=== PATIENT | female | born 1990 | race Caucasian/White ===

== ENCOUNTER → 2016-10-18 | Outpatient (REF) | payer OTHER ==
[~2016-10-18] MED LIST: IBUP60TA PO; MOTRIN PO; PERC5TAB6 PO; PERCOCET PO; STUART NATAL PO; TYLENOL PO
[2016-10-18 17:58] LABS: MEAN CORPUSCULAR HEMOGLOBIN 26.7 pg (27.0-33.0); MEAN CORPUSCULAR HGB CONC 33.1 g/dl (32.0-36.5); MEAN CORPUSCULAR VOLUME 80.7 fl (80.0-96.0); RED CELL DISTRIBUTION WIDTH 14.4 % (11.5-14.5)
[2016-10-18 18:01] LABS: ALBUMIN 4.4 GM/DL (3.2-5.2); ALBUMIN/GLOBULIN RATIO 1.29 (1.00-1.93); ALKALINE PHOSPHATASE 45 U/L (45-117); ALT/SGPT 33 U/L (12-78); ANION GAP 5 MEQ/L (8-16); AST/SGOT 19 U/L (15-37); BILIRUBIN,TOTAL 0.5 MG/DL (0.2-1.0); BLOOD UREA NITROGEN 13 MG/DL (7-18); CALCIUM LEVEL 9.5 MG/DL (8.5-10.1); CARBON DIOXIDE LEVEL 30 MEQ/L (21-32); CHLORIDE LEVEL 105 MEQ/L (98-107); CREATININE FOR GFR 0.88 MG/DL (0.55-1.02); GLOMERULAR FILTRATION RATE > 60.0 (>60); GLUCOSE, FASTING 94 MG/DL (70-105); POTASSIUM SERUM 4.7 MEQ/L (3.5-5.1); SODIUM LEVEL 140 MEQ/L (136-145); TOTAL PROTEIN 7.8 GM/DL (6.4-8.2)
== END ==
LOC: M SFHCLERA 11:06
PROVIDERS: ATTEND Physician Assistant
DX: F41.8 Other specified anxiety disorders (principal)

== ENCOUNTER → 2016-11-10 | Outpatient (CLI) | payer OTHER ==
[2016-11-10 19:24] LABS: BASO # 0.1 K/mm3 (0.0-0.2); BASO % 0.9 % (0.0-1.0); EOS # 0.1 K/mm3 (0.0-0.50); EOS % 1.8 % (0.0-3.0); LARGE UNSTAINED CELL # 0.2 K/mm3 (0.0-0.4); LARGE UNSTAINED CELL % 2.2 % (0.0-4.0); LYMPH # 2.1 K/mm3 (1.5-6.5); LYMPH % 28.7 % (24.0-44.0); MEAN CORPUSCULAR HEMOGLOBIN 27.5 pg (27.0-33.0); MEAN CORPUSCULAR HGB CONC 33.5 g/dl (32.0-36.5); MEAN CORPUSCULAR VOLUME 81.9 fl (80.0-96.0); MONO # 0.3 K/mm3 (0.0-0.8); MONO % 4.9 % (0.0-5.0); NEUTROPHILS # 4.3 K/mm3 (1.8-7.7); NEUTROPHILS % 61.5 % (36.0-66.0); PLATELET COUNT, AUTOMATED 242 k/mm3 (150-450); RED CELL DISTRIBUTION WIDTH 14.5 % (11.5-14.5); WHITE BLOOD COUNT 6.9 K/mm3 (4.0-10.0)
[2016-11-10 19:44] LABS: FREE T4 0.88 NG/DL (0.76-1.46)
[2016-11-11 10:31] LABS: HBsAg Prenatal NEGATIVE (NEGATIVE)
== END ==
LOC: M SMT 13:17
PROVIDERS: ATTEND Specialist
DX: Z36 Encounter for antenatal screening of mother (principal); Z3A.00 Weeks of gestation of pregnancy not specified

== ENCOUNTER → 2017-02-14 | Outpatient (CLI) | payer OTHER ==
[~2017-02-14] MED LIST changes: +PERC5TAB12 PO; -PERC5TAB6 PO
[2017-02-14 20:29] LABS: FREE T4 0.99 NG/DL (0.76-1.46)
== END ==
LOC: M SMT 10:54
PROVIDERS: ATTEND Specialist
DX: E03.9 Hypothyroidism, unspecified (principal)

== ENCOUNTER → 2017-03-06 | Outpatient (CLI) | payer OTHER ==
--- NOTE | 2017-03-06 22:24 | REP ---
Clinical: Anatomical evaluation. Comparison: None . Findings: Examination demonstrates a single live intrauterine in breech presentation. motion is identified by technologist. Placenta is noted posteriorly and grade zero without evidence for placenta previa or abruption. Amniotic fluid volume is normal. Cervix measures 4.7 cm in length and appears closed. No evidence for nuchal cord. Gestational age by current measurements 20 weeks 6 days with TONYA 07/18/2017 . FHR equals 141 beats per minute. BPD 4.9 cm 20 weeks 5 days HC 18.6 cm 21 weeks 1 day AC 15.9 cm 21 weeks 0 days FL 3.7 cm 21 weeks 6 days HL 3.7 cm 22 weeks 6 days HC/AC ratio 1.17 Estimated weight 416 grams ( 60th percentile). Anatomical assessment demonstrates normal structures including cranium, choroid plexus, cavum, cerebellum/posterior fossa, facial features, lungs, four-chamber heart/ventricular outflow tracts, diaphragm, stomach, cord insertion/three-vessel cord, kidneys/bladder, spine, and extremities. Impression: Single live intrauterine in breech presentation. Anatomical assessment is complete and normal. No gross abnormalities are identified. Signed by Db Mendoza MD 03/06/2017 10:16 P
== END ==
LOC: M SMT 09:21
PROVIDERS: ATTEND Specialist
DX: Z36 Encounter for antenatal screening of mother (principal); Z3A.20 20 weeks gestation of pregnancy

== ENCOUNTER → 2017-04-14 | Outpatient (CLI) | payer OTHER ==
[2017-04-14 13:45] LABS: BASO % 0.3 % (0.0-1.0); EOS # 0.1 10^3/uL (0.0-0.50); IMMATURE GRANULOCYTE % 0.9 % (0-0); LYMPH # 1.7 10^3/uL (1.5-6.5); LYMPH % 19.4 % (24.0-44.0); MEAN CORPUSCULAR HEMOGLOBIN 25.8 pg (27.0-33.0); MEAN CORPUSCULAR HGB CONC 31.9 g/dl (32.0-36.5); MONO # 0.6 10^3/uL (0.0-0.8); MONO % 6.3 % (0.0-5.0); NEUTROPHILS # 6.4 10^3/uL (1.8-7.7); NEUTROPHILS % 72.1 % (36.0-66.0); PLATELET COUNT, AUTOMATED 213 10^3/uL (150-450); RED CELL DISTRIBUTION WIDTH 13.9 % (11.5-14.5); WHITE BLOOD COUNT 8.9 10^3/uL (4.0-10.0)
== END ==
LOC: M SMT 09:26
PROVIDERS: ATTEND Specialist
DX: Z36.89 Encounter for other specified antenatal screening (principal); Z3A.00 Weeks of gestation of pregnancy not specified

== ENCOUNTER → 2017-06-19 | Outpatient (CLI) | payer MEDICAID ==
[2017-06-19 13:18] LABS: MEAN CORPUSCULAR HGB CONC 31.4 g/dl (32.0-36.5); MEAN CORPUSCULAR VOLUME 79.5 fl (80.0-96.0); PLATELET COUNT, AUTOMATED 216 10^3/uL (150-450); RED CELL DISTRIBUTION WIDTH 19.4 % (11.5-14.5); WHITE BLOOD COUNT 10.2 10^3/uL (4.0-10.0)
== END ==
LOC: M SMT 11:04
PROVIDERS: ATTEND Specialist
DX: D64.9 Anemia, unspecified (principal)

== ENCOUNTER → 2017-06-19 | Outpatient (REF) | payer MEDICAID | LOC: M LAB REF 12:58 | PROVIDERS: ATTEND Specialist | DX: Z34.83 Encounter for supervision of other normal pregnancy, third trimester (principal) ==

== ENCOUNTER → 2017-06-29 | Outpatient (CLI) | payer MEDICAID ==
--- NOTE | 2017-06-29 11:00 | REP ---
OB ULTRASOUND: Real-time sonographic evaluation of the gravid uterus is performed. There is a single living intrauterine gestation with an estimated gestational age or 37 weeks 2 days, EDC 07/18/2017. Today's measurements indicate appropriate growth. BPD 89 mm = 36 weeks 1 day, 32nd percentile HC 337 mm = 38 weeks 4 days, 70th percentile AC 341 mm = 38 weeks 0 days, 60th percentile Femur length 73 mm = 37 weeks 1 day, 47th percentile HC/AC ratio 0.99 within normal range. Estimated weight 3269 grams, 60th percentile. heart rate 139 beats per minute. Amniotic fluid within normal limits, MARIAN 18.5 within normal range of 7.4-24.2. Biophysical profile score 8 out of 8. S/D ratio 2.42 within normal range. RI 0.59 within normal range. SEEN/GROSSLY UNREMARKABLE Lateral ventricles Yes Posterior fossa Yes Upper lip Yes Four-chamber heart Yes LVOT Yes RVOT No Stomach Yes Cord insertion No Three vessel cord Yes Kidneys Yes Bladder Yes Spine No position: Vertex. Placenta: Anterior and grade 1 with no previa or abruption. Signed by Emeterio Mitchell MD 06/29/2017 08:36 P
== END ==
LOC: M SMT 09:17
PROVIDERS: ATTEND Advanced Practice Midwife
DX: O09.293 Supervision of pregnancy with other poor reproductive or obstetric history, third trimester (principal); Z3A.37 37 weeks gestation of pregnancy

== ENCOUNTER 2017-07-21 04:57 | Inpatient (IN) | payer OTHER, MEDICAID ==
[2017-07-21 05:36] LABS: HEMATOCRIT 35.8 % (36.0-47.0); HEMOGLOBIN 11.6 g/dl (12.0-16.0); MEAN CORPUSCULAR HEMOGLOBIN 25.8 pg (27.0-33.0); MEAN CORPUSCULAR HGB CONC 32.4 g/dl (32.0-36.5); MEAN CORPUSCULAR VOLUME 79.6 fl (80.0-96.0); PLATELET COUNT, AUTOMATED 190 10^3/uL (150-450); RED CELL DISTRIBUTION WIDTH 19.6 % (11.5-14.5); WHITE BLOOD COUNT 8.3 10^3/uL (4.0-10.0)
[2017-07-21] MEDS: PENICILLIN G POTASSIUM IV 5 MU in D5W MINI-BAG PLUS 100 ML IV (05:56)
[2017-07-21 06:04] LABS: AMPHETAMINES URINE REFLEX NEGATIVE (NEGATIVE); BARBITURATES URINE REFLEX NEGATIVE (NEGATIVE); BENZODIAZEPINES URINE REFLEX NEGATIVE (NEGATIVE); CANNABINOIDS URINE REFLEX NEGATIVE (NEGATIVE); COCAINE METABOLITE URINE REFLE NEGATIVE (NEGATIVE); METHADONE URINE REFLEX NEGATIVE (NEGATIVE); OPIATES URINE REFLEX NEGATIVE (NEGATIVE); PHENCYCLIDINE URINE REFLEX NEGATIVE (NEGATIVE)
[2017-07-21] MEDS ORDERED: OXYTOCIN 30 UNITS IN 0.9% NaCl 500ML IV BAG (J2590) As Ordered (07:49)
[2017-07-21] MEDS: OXYTOCIN DRIP 30 UNITS in APPROPRIATE DILUENT 1 EA IV (07:56)
[2017-07-21] MEDS: PENICILLIN G POTASSIUM IV 2.5 MU in APPROPRIATE DILUENT 1 EA IV ×4 (10:44→23:14)
[2017-07-21] MEDS: LR 1,000 ML IV ×2 (13:49→15:44)
[2017-07-21] MEDS ORDERED: FENTANYL/ROPIVACAINE/NACL BAG 200 ML EPIDURAL (22:30)
[2017-07-21] MEDS ORDERED: NALOXONE INJ 0.4 MG/1 ML VIAL (J2310) IV (22:30)
[2017-07-21] MEDS ORDERED: REFRIGERATOR IV KEYS XX (22:30)
[2017-07-21] MEDS ORDERED: EPIDURAL/PCA KEYS XX (22:30)
[2017-07-21] MEDS ORDERED: EPIDURAL COMMENT XX (22:30)
[2017-07-21] MEDS ORDERED: diphenhydrAMINE INJ 50MG/ML VIAL (J1200) IV (22:30)
[2017-07-21] MEDS ORDERED: ONDANSETRON 4MG/2ML VIAL (J2405) IV (22:30)
[2017-07-22] MEDS: LACTATED RINGER'S 1000 ML IV (01:32)
[2017-07-22] MEDS: ePHEDrine SULFATE 25 MG/5 ML(5MG/ML) SYRINGE IV (01:32)
[2017-07-22] MEDS: OXYTOCIN DRIP 30 UNITS in APPROPRIATE DILUENT 1 EA IV (05:00)
[2017-07-22] MEDS ORDERED: ONDANSETRON 4MG/2ML VIAL (J2405) IV (05:00)
[2017-07-22] MEDS ORDERED: METHYLERGONOVINE MALEATE 0.2 MG TAB PO (05:00)
[2017-07-22] MEDS ORDERED: RHOGAM 300 MCG (1500 IU) INJ (J2790) IM (05:00)
[2017-07-22] MEDS ORDERED: MEASLES,MUMPS,RUBELLA VACCINE INJ (MMR-II) (90707) SC (05:00)
[2017-07-22] MEDS: LIDOCAINE 1% MDV INJ 50 ML VIAL INFIL (05:00)
[2017-07-22] MEDS: PRENATAL VITAMINS CHEWABLE TABLET PO (08:27)
[2017-07-22] MEDS: IBUPROFEN 800 MG TAB PO ×2 (08:28→17:28)
[2017-07-22] MEDS: DOCUSATE SODIUM 100 MG CAP PO (12:39)
[2017-07-22] MEDS: DIBUCAINE 1% OINTMENT 30GM TOP (12:40)
[2017-07-22] MEDS: ACETAMINOPHEN 500 MG TAB PO (12:40)
[2017-07-23] MEDS: PRENATAL VITAMINS CHEWABLE TABLET PO (08:32)
== END 2017-07-23 14:35 | disposition home or self-care (01) | DRG 560 ==
LOC: M LDI 04:57 → M OBS 07-22 13:37
PROVIDERS: Specialist
PROC: 3E033VJ Introduction of Other Hormone into Peripheral Vein, Percutaneous Approach (ICD-10-PCS; 2017-07-21)
PROC: 10D07Z6 Extraction of Products of Conception, Vacuum, Via Natural or Artificial Opening (ICD-10-PCS; principal; 2017-07-22)
PROC: 0KQM0ZZ Repair Perineum Muscle, Open Approach (ICD-10-PCS; 2017-07-22)
DX: O48.0 Post-term pregnancy (principal); O34.211 Maternal care for low transverse scar from previous cesarean delivery; Z3A.40 40 weeks gestation of pregnancy; O99.824 Streptococcus B carrier state complicating childbirth; O99.284 Endocrine, nutritional and metabolic diseases complicating childbirth; E03.9 Hypothyroidism, unspecified; O76 Abnormality in fetal heart rate and rhythm complicating labor and delivery; O70.1 Second degree perineal laceration during delivery; O69.81X0 Labor and delivery complicated by cord around neck, without compression, not applicable or unspecified; Z37.0 Single live birth

== ENCOUNTER → 2018-02-15 | Outpatient (REF) | payer OTHER ==
[2018-02-15 16:41] LABS: HEMATOCRIT 36.4 % (36.0-47.0); HEMOGLOBIN 11.7 g/dl (12.0-15.5); MEAN CORPUSCULAR HGB CONC 32.1 g/dl (32.0-36.5); MEAN CORPUSCULAR VOLUME 84.1 fl (80.0-96.0); PLATELET COUNT, AUTOMATED 248 10^3/uL (150-450); RED BLOOD COUNT 4.33 10^6/uL (4.00-5.40); WHITE BLOOD COUNT 6.7 10^3/uL (4.0-10.0)
[2018-02-15 16:42] LABS: THYROID STIMULATING HORMONE 0.668 uIU/ML (0.358-3.740)
== END ==
LOC: M SFHCPLAZ 13:54
DX: R53.83 Other fatigue (principal)
CPT/HCPCS: 84443

== ENCOUNTER 2018-02-21 07:57 | Emergency (ER) | payer OTHER ==
[2018-02-21] MEDS: diphenhydrAMINE INJ 50MG/ML VIAL (J1200) IV (09:12)
[2018-02-21] MEDS: METOCLOPRAMIDE INJ 10MG/2ML VIAL (J2765) IV (09:12)
[2018-02-21 09:24] LABS: HEMATOCRIT 36.9 % (36.0-47.0); MEAN CORPUSCULAR HGB CONC 32.5 g/dl (32.0-36.5); MEAN CORPUSCULAR VOLUME 83.1 fl (80.0-96.0); PLATELET COUNT, AUTOMATED 255 10^3/uL (150-450); RED BLOOD COUNT 4.44 10^6/uL (4.00-5.40); RED CELL DISTRIBUTION WIDTH 12.9 % (11.5-14.5); WHITE BLOOD COUNT 6.5 10^3/uL (4.0-10.0)
[2018-02-21 09:30] LABS: ADD MANUAL DIFFER YES; DIFF SLIDE NUMBER 154; POSITIVE MORPH POS FLAG
[2018-02-21 09:47] LABS: ALBUMIN 3.6 GM/DL (3.2-5.2); ALBUMIN/GLOBULIN RATIO 0.88 (1.00-1.93); ALKALINE PHOSPHATASE 43 U/L (45-117); ALT/SGPT 26 U/L (12-78); ANION GAP 8 MEQ/L (8-16); AST/SGOT 24 U/L (7-37); BILIRUBIN,TOTAL 0.4 MG/DL (0.2-1.0); BLOOD UREA NITROGEN 16 MG/DL (7-18); CALCIUM LEVEL 9.1 MG/DL (8.5-10.1); CARBON DIOXIDE LEVEL 26 MEQ/L (21-32); CHLORIDE LEVEL 107 MEQ/L (98-107); CREATININE FOR GFR 0.86 MG/DL (0.55-1.30); GLOMERULAR FILTRATION RATE > 60.0 (>60); GLUCOSE, FASTING 99 MG/DL (70-100); POTASSIUM SERUM 4.6 MEQ/L (3.5-5.1); SODIUM LEVEL 141 MEQ/L (136-145); TOTAL PROTEIN 7.7 GM/DL (6.4-8.2)
[2018-02-21 09:53] LABS: ATYPICAL LYMPH 7 % (0-5); BANDS 1 % (< 11); BASOPHILS 2 % (0-4); EOSINOPHILS 9 % (0-5); LYMPHOCYTES 35 % (16-52); MONOCYTES 7 % (0-8); NEUTROPHILS 39 % (35-75); PLATELET ESTIMATE NORMAL (NORMAL)
[2018-02-21] MEDS: NS 1,000 ML IV (10:50)
== END 2018-02-21 14:50 | disposition home or self-care (01) ==
LOC: M ED 07:57
DX: R20.9 Unspecified disturbances of skin sensation (principal); R51 Headache; R00.1 Bradycardia, unspecified; Z79.899 Other long term (current) drug therapy
CPT/HCPCS: J1200

== ENCOUNTER → 2018-04-20 | Outpatient (REF) | payer OTHER ==
[2018-04-20 13:47] LABS: BASO # 0.1 10^3/uL (0.0-0.2); BASO % 1.3 % (0.0-1.0); EOS # 0.2 10^3/uL (0.0-0.50); EOS % 3.3 % (0.0-3.0); HEMATOCRIT 39.1 % (36.0-47.0); HEMOGLOBIN 12.6 g/dl (12.0-15.5); IMMATURE GRANULOCYTE % 0.1 % (0-3.0); LYMPH # 2.5 10^3/uL (1.5-6.5); LYMPH % 36.7 % (24.0-44.0); MEAN CORPUSCULAR HEMOGLOBIN 26.4 pg (27.0-33.0); MEAN CORPUSCULAR HGB CONC 32.2 g/dl (32.0-36.5); MONO # 0.4 10^3/uL (0.0-0.8); MONO % 5.4 % (0.0-5.0); NEUTROPHILS # 3.7 10^3/uL (1.8-7.7); NEUTROPHILS % 53.2 % (36.0-66.0); PLATELET COUNT, AUTOMATED 257 10^3/uL (150-450); RED BLOOD COUNT 4.77 10^6/uL (4.00-5.40); RED CELL DISTRIBUTION WIDTH 13.5 % (11.5-14.5); WHITE BLOOD COUNT 6.9 10^3/uL (4.0-10.0)
[2018-04-20 14:06] LABS: ALBUMIN 3.9 GM/DL (3.2-5.2); ALBUMIN/GLOBULIN RATIO 1.03 (1.00-1.93); ALKALINE PHOSPHATASE 40 U/L (45-117); ALT/SGPT 23 U/L (12-78); ANION GAP 9 MEQ/L (8-16); AST/SGOT 21 U/L (7-37); BILIRUBIN,TOTAL 0.4 MG/DL (0.2-1.0); BLOOD UREA NITROGEN 15 MG/DL (7-18); CALCIUM LEVEL 9.2 MG/DL (8.5-10.1); CARBON DIOXIDE LEVEL 26 MEQ/L (21-32); CHLORIDE LEVEL 106 MEQ/L (98-107); FOLATE > 24.0 NG/ML; GLOMERULAR FILTRATION RATE > 60.0 (>60); GLUCOSE, FASTING 91 MG/DL (70-100); POTASSIUM SERUM 4.9 MEQ/L (3.5-5.1); RHEUMATOID FACTOR QUANT < 10.0 IU/ML (<15.0); SODIUM LEVEL 141 MEQ/L (136-145); THYROID STIMULATING HORMONE 0.369 uIU/ML (0.358-3.740); TOTAL PROTEIN 7.7 GM/DL (6.4-8.2)
[2018-04-20 14:34] LABS: ERYTHROCYTE SEDIMENTATION RATE 12 mm/hr (0-20)
[2018-04-24 12:41] LABS: ALBUMIN 4.24 GM/DL (3.29-5.55); ALPHA-1-GLOBULIN % 4.2 % (2.9-4.9); ALPHA-1-GLOBULINS 0.32 GM/DL (0.17-0.41); ALPHA-2-GLOBULINS 0.79 GM/DL (0.42-0.99); ALPHA-2-GLOBULINS % 10.3 % (7.1-11.8); BETA-1-GLOBULINS 0.57 GM/DL (0.28-0.60); BETA-1-GLOBULINS % 7.4 % (4.7-7.2); BETA-2-GLOBULINS 0.38 GM/DL (0.19-0.55); BETA-2-GLOBULINS % 4.9 % (3.2-6.5); GAMMA GLOBULIN % 18.2 % (11.1-18.8)
[2018-04-25 08:06] LABS: ANTI DOUBLE STRAND-DNA AB 1 IU/mL (0-9); ANTINUCLEAR ANTIBODIES DIRECT Positive (Negative); RNP ANTIBODIES <0.2 AI (0.0-0.9); SJOGREN'S ANTI SS-A 0.4 AI (0.0-0.9); SJOGREN'S ANTI SS-B <0.2 AI (0.0-0.9); SMITH ANTIBODIES <0.2 AI (0.0-0.9); VITAMIN B1 LEVEL WHOLE BLOOD 107.2 nmol/L (66.5-200.0); VITAMIN B6,PYRIDOXAL PHOSPHATE 13.3 ug/L (2.0-32.8); VITAMIN E(ALPHA TOCOPHEROL) 11.2 mg/L (5.9-19.4); VITAMIN E(GAMMA TOCOPHEROL) 0.7 mg/L (0.7-4.9)
== END ==
LOC: M LABNEURO 09:18
DX: R42 Dizziness and giddiness (principal); R20.2 Paresthesia of skin
CPT/HCPCS: 82746

== ENCOUNTER → 2018-06-25 | Outpatient (REF) | payer OTHER ==
[~2018-06-25] MED LIST changes: +IBUP-1114 PO; +IRON65TA PO; +LEVO50TA5 PO; +MAPA500T17 PO; +SPRI28TA
[2018-06-27 14:14] LABS: ANTI DOUBLE STRAND-DNA AB <1 IU/mL (0-9); ANTINUCLEAR ANTIBODIES DIRECT Positive (Negative); RNP ANTIBODIES <0.2 AI (0.0-0.9); SJOGREN'S ANTI SS-A 0.3 AI (0.0-0.9); SJOGREN'S ANTI SS-B <0.2 AI (0.0-0.9); SMITH ANTIBODIES <0.2 AI (0.0-0.9)
== END ==
LOC: M LABNEURO 13:27
PROVIDERS: ATTEND Psychiatry & Neurology Neurology
DX: Z00.00 Encounter for general adult medical examination without abnormal findings (principal)

== ENCOUNTER 2018-07-16 08:40 | Emergency (ER) | payer OTHER ==
[~2018-07-16] VITALS: Ht 152.4 cm; Wt 59.5 kg
[~2018-07-16 08:40] MED LIST changes: -MAPA500T17 PO; +MAPA500T2 PO
[2018-07-16] MEDS ORDERED: NS 500 ML IV ONE (09:30)
[2018-07-16 10:00] LABS: BASO # 0.1 10^3/uL (0.0-0.2); BASO % 0.8 % (0.0-1.0); EOS # 0.2 10^3/uL (0.0-0.50); EOS % 2.1 % (0.0-3.0); HEMATOCRIT 38.2 % (36.0-47.0); HEMOGLOBIN 12.8 g/dl (12.0-15.5); LYMPH % 24.9 % (24.0-44.0); MEAN CORPUSCULAR HEMOGLOBIN 26.6 pg (27.0-33.0); MEAN CORPUSCULAR HGB CONC 33.5 g/dl (32.0-36.5); MEAN CORPUSCULAR VOLUME 79.4 fl (80.0-96.0); MONO # 0.4 10^3/uL (0.0-0.8); NEUTROPHILS # 5.4 10^3/uL (1.8-7.7); NEUTROPHILS % 66.9 % (36.0-66.0); PLATELET COUNT, AUTOMATED 307 10^3/uL (150-450); RED BLOOD COUNT 4.81 10^6/uL (4.00-5.40)
[2018-07-16 10:34] LABS: HCG, SERUM QUALITATIVE POSITIVE (NEGATIVE)
[2018-07-16 10:48] LABS: ALT/SGPT 27 U/L (12-78); BLOOD UREA NITROGEN 10 MG/DL (7-18); CALCIUM LEVEL 8.7 MG/DL (8.5-10.1); CARBON DIOXIDE LEVEL 22 MEQ/L (21-32); CHLORIDE LEVEL 107 MEQ/L (98-107); CREATININE FOR GFR 0.86 MG/DL (0.55-1.30); GLOMERULAR FILTRATION RATE > 60.0 (>60); GLUCOSE, FASTING 106 MG/DL (70-100); POTASSIUM SERUM 3.5 MEQ/L (3.5-5.1); SODIUM LEVEL 139 MEQ/L (136-145)
[2018-07-16 10:49] LABS: ALBUMIN 3.9 GM/DL (3.2-5.2); BILIRUBIN,DIRECT 0.1 MG/DL (0.0-0.2); BILIRUBIN,TOTAL 0.5 MG/DL (0.2-1.0); CPK CREATINE PHOSPHOKINASE 108 U/L (26-192); LIPASE 102 U/L (73-393); MB/CK RELATIVE INDEX 1.02 (< OR =4); TOTAL PROTEIN 8.1 GM/DL (6.4-8.2); TROPONIN I < 0.02 NG/ML (< 0.10)
[2018-07-16 13:29] VITALS: BP 117/62
--- NOTE | 2018-07-16 13:48 | ECGEPIP ---
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
[2018-07-25] MEDS ORDERED: BUSP5TA (11:38)
== END 2018-07-16 13:39 | disposition home or self-care (01) ==
LOC: M ED 08:40
DX: O99.89 Other specified diseases and conditions complicating pregnancy, childbirth and the puerperium (principal); R00.2 Palpitations

== ENCOUNTER 2018-07-20 18:22 | Emergency (ER) | payer OTHER ==
[~2018-07-20] VITALS: Ht 162.6 cm; Wt 60.0 kg
[2018-07-20] MEDS ORDERED: PRENCHW PO (18:29)
[2018-07-20] MEDS ORDERED: PERCOCET 5MG/325MG TAB PO ONE (18:45)
[2018-07-20] MEDS ORDERED: PERC5TAB12 PO (19:36)
[2018-07-20 19:41] VITALS: BP 105/61
--- NOTE | 2018-07-20 19:46 | REP ---
Right ankle series: Three views. History: Injury in a fall. Findings: There is moderate to marked anterolateral soft-tissue swelling about the ankle. Ankle mortise is intact. No fractures seen. Impression: Moderate to marked swelling. No fracture noted. Electronically Signed by Yahir Vicente MD 07/20/2018 07:38 P
[2018-07-25] MEDS ORDERED: BUSP5TA (11:38)
== END 2018-07-20 19:49 | disposition home or self-care (01) ==
LOC: M ED 18:22
DX: O9A.211 Injury, poisoning and certain other consequences of external causes complicating pregnancy, first trimester (principal); S93.401A Sprain of unspecified ligament of right ankle, initial encounter; X58.XXXA Exposure to other specified factors, initial encounter; Y92.89 Other specified places as the place of occurrence of the external cause; Y93.75 Activity, martial arts; O99.341 Other mental disorders complicating pregnancy, first trimester; F33.9 Major depressive disorder, recurrent, unspecified; F41.9 Anxiety disorder, unspecified; Z79.899 Other long term (current) drug therapy; Z3A.01 Less than 8 weeks gestation of pregnancy

== ENCOUNTER 2018-07-25 11:27 | Emergency (ER) | payer OTHER ==
[~2018-07-25] VITALS: Ht 162.6 cm; Wt 60.0 kg
[~2018-07-25 11:27] MED LIST changes: +PRENCHW PO
[2018-07-25] MEDS ORDERED: BUSP5TA PO (11:38)
[2018-07-25 13:35] LABS: BASO # 0.1 10^3/uL (0.0-0.2); BASO % 0.9 % (0.0-1.0); EOS # 0.2 10^3/uL (0.0-0.50); EOS % 2.6 % (0.0-3.0); HEMATOCRIT 36.3 % (36.0-47.0); HEMOGLOBIN 12.2 g/dl (12.0-15.5); LYMPH # 2.1 10^3/uL (1.5-6.5); LYMPH % 26.2 % (24.0-44.0); MEAN CORPUSCULAR HEMOGLOBIN 27.3 pg (27.0-33.0); MEAN CORPUSCULAR HGB CONC 33.6 g/dl (32.0-36.5); MEAN CORPUSCULAR VOLUME 81.2 fl (80.0-96.0); MONO # 0.6 10^3/uL (0.0-0.8); MONO % 7.3 % (0.0-5.0); NEUTROPHILS # 5.1 10^3/uL (1.8-7.7); NEUTROPHILS % 62.8 % (36.0-66.0); PLATELET COUNT, AUTOMATED 296 10^3/uL (150-450); RED BLOOD COUNT 4.47 10^6/uL (4.00-5.40); WHITE BLOOD COUNT 8.1 10^3/uL (4.0-10.0)
[2018-07-25 13:53] LABS: BLOOD UREA NITROGEN 11 MG/DL (7-18); CALCIUM LEVEL 8.9 MG/DL (8.5-10.1); CARBON DIOXIDE LEVEL 22 MEQ/L (21-32); CHLORIDE LEVEL 110 MEQ/L (98-107); CK-MB VALUE MASS < 1.0 NG/ML (<3.6); CPK CREATINE PHOSPHOKINASE 107 U/L (26-192); GLOMERULAR FILTRATION RATE > 60.0 (>60); GLUCOSE, FASTING 100 MG/DL (70-100); MAGNESIUM LEVEL 2.1 MG/DL (1.8-2.4); MB/CK RELATIVE INDEX 0.93 (< OR =4); POTASSIUM SERUM 3.5 MEQ/L (3.5-5.1); SODIUM LEVEL 140 MEQ/L (136-145); TROPONIN I < 0.02 NG/ML (< 0.10)
[2018-07-25 14:57] VITALS: BP 120/56
--- NOTE | 2018-07-26 07:31 | ECGEPIP ---
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
--- NOTE | 2018-07-26 07:52 | ECGEPIP ---
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
== END 2018-07-25 14:59 | disposition home or self-care (01) ==
LOC: M ED 11:27
DX: R55 Syncope and collapse (principal)

== ENCOUNTER → 2018-07-30 | Outpatient (REF) | payer OTHER ==
[~2018-07-30] MED LIST changes: +BUSP5TA
[2018-07-30 13:56] LABS: C REACTIVE PROTEIN QUANTITATIV < 0.30 MG/DL (0.00-0.30); COMPLEMENT C3 94 MG/DL (90-180); COMPLEMENT C4 24 MG/DL (10-40); RHEUMATOID FACTOR QUANT < 10.0 IU/ML (<15.0)
[2018-07-30 14:00] LABS: FOLATE > 24.0 NG/ML
[2018-07-31 08:28] LABS: VITAMIN B12 LEVEL 982 PG/ML
[2018-08-02 00:06] LABS: ANA (HEP2) Positive (.); ANTI DOUBLE STRAND-DNA AB 1 IU/mL (0-9); RNP ANTIBODY < 0.2 AI (0.0-0.9); SMITHS ANTIBODY < 0.2 AI (0.0-0.9); SSA SJOGRENS A 0.4 AI (0.0-0.9); SSB SJOGRENS B <0.2 AI (0.0-0.9)
== END ==
LOC: M SFHCPLAZ 11:06
PROVIDERS: ATTEND Family Medicine
DX: R76.8 Other specified abnormal immunological findings in serum (principal)

== ENCOUNTER 2018-08-05 22:04 | Emergency (ER) | payer OTHER ==
[~2018-08-05] VITALS: Ht 162.6 cm; Wt 59.5 kg
[~2018-08-05 22:04] MED LIST changes: -BUSP5TA; +BUSP5TA PO
[2018-08-05] MEDS ORDERED: diphenhydrAMINE INJ 50MG/ML VIAL (J1200) IV ONE (22:45)
[2018-08-05 22:58] LABS: HEMATOCRIT 36.8 % (36.0-47.0); HEMOGLOBIN 12.5 g/dl (12.0-15.5); MEAN CORPUSCULAR HEMOGLOBIN 27.3 pg (27.0-33.0); MEAN CORPUSCULAR VOLUME 80.3 fl (80.0-96.0); PLATELET COUNT, AUTOMATED 288 10^3/uL (150-450); RED BLOOD COUNT 4.58 10^6/uL (4.00-5.40); WHITE BLOOD COUNT 11.5 10^3/uL (4.0-10.0)
[2018-08-05] MEDS ORDERED: NS 1,000 ML IV ONE (23:15)
[2018-08-05 23:23] LABS: ATYPICAL LYMPH 3 % (0-5); EOSINOPHILS 2 % (0-5); LYMPHOCYTES 52 % (16-52); MONOCYTES 4 % (0-8); NEUTROPHILS 39 % (35-75); PLATELET ESTIMATE NORMAL (NORMAL)
[2018-08-05 23:36] LABS: BLOOD UREA NITROGEN 11 MG/DL (7-18); CALCIUM LEVEL 9.4 MG/DL (8.5-10.1); CARBON DIOXIDE LEVEL 19 MEQ/L (21-32); CHLORIDE LEVEL 108 MEQ/L (98-107); CPK CREATINE PHOSPHOKINASE 92 U/L (26-192); CREATININE FOR GFR 0.67 MG/DL (0.55-1.30); FREE THYROXINE INDEX 3.4 % (1.3-4.8); GLOMERULAR FILTRATION RATE > 60.0 (>60); GLUCOSE, FASTING 92 MG/DL (70-100); HCG, SERUM QUANTITATIVE 95384 MIU/ML; MB/CK RELATIVE INDEX 1.09 (< OR =4); POTASSIUM SERUM 3.3 MEQ/L (3.5-5.1); SODIUM LEVEL 139 MEQ/L (136-145); T UPTAKE 31 % (30-39); THYROXINE (T4) 10.9 UG/DL (4.5-12.0); TROPONIN I < 0.02 NG/ML (< 0.10)
[2018-08-05] MEDS ORDERED: ISOVUE-370 76% 100ML VIAL (Q9967) As Ordered ONE (23:46)
[2018-08-06] MEDS ORDERED: POTASSIUM CHL PWD 20 MEQ PACKET PO ONE
[2018-08-06 00:21] LABS: MAGNESIUM LEVEL 2.1 MG/DL (1.8-2.4)
--- NOTE | 2018-08-06 00:35 | REPVR ---
EXAM: CT Angiography Chest With Contrast EXAM DATE/TIME: 08/05/2018 12:03 AM CLINICAL HISTORY: 28 years old, female; Pain; Chest pain; Additional info: Left-sided chest pain, +preg TECHNIQUE: Axial computed tomographic angiography images of the chest with intravenous contrast using CT angiography protocol. All CT scans at this facility use at least one of these dose optimization techniques: automated exposure control; mA and/or kV adjustment per patient size (includes targeted exams where dose is matched to clinical indication); or iterative reconstruction. Coronal and sagittal reformatted images were created and reviewed. MIP reconstructed images were created and reviewed. COMPARISON: No relevant prior studies available. FINDINGS: No focal pulmonary artery filling defect to suggest acute pulmonary embolus. No thoracic aortic aneurysm or dissection. Residual thymic tissue is present in the anterior mediastinum. No enlarged mediastinal lymph nodes. No pleural effusion or pneumothorax. Pulmonary vascular/interstitial pattern does not suggest active pulmonary edema. No suspicious lung mass or air space process. No central endobronchial lesion. Limited visualization of upper abdomen shows no concerning finding. Bony structures show no acute fracture or destructive process. IMPRESSION: No evidence of acute pulmonary embolus. No other acute or concerning focal intrathoracic abnormality. Electronically signed by: Nico Feldman On 08/06/2018 00:35:09 AM
[2018-08-06 01:00] VITALS: BP 99/58
--- NOTE | 2018-08-07 20:48 | ECGEPIP ---
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
== END 2018-08-06 01:05 | disposition home or self-care (01) ==
LOC: M ED 22:04
DX: F41.9 Anxiety disorder, unspecified (principal); R07.9 Chest pain, unspecified
CPT/HCPCS: 36415; 71275; 80048; 82550; 82553; 83735; 84436; 84443; 84479; 84702; 85025; 93005; 93041; 96361; 96374; 99285; J1200; Q9967

== ENCOUNTER → 2018-08-14 | Outpatient (CLI) | payer OTHER ==
[2018-08-14 15:11] LABS: BASO # 0.1 10^3/uL (0.0-0.2); BASO % 0.7 % (0.0-1.0); EOS # 0.1 10^3/uL (0.0-0.50); EOS % 1.7 % (0.0-3.0); HEMATOCRIT 36.3 % (36.0-47.0); HEMOGLOBIN 12.1 g/dl (12.0-15.5); LYMPH # 2.8 10^3/uL (1.5-6.5); LYMPH % 33.9 % (24.0-44.0); MEAN CORPUSCULAR HEMOGLOBIN 27.1 pg (27.0-33.0); MEAN CORPUSCULAR HGB CONC 33.3 g/dl (32.0-36.5); MEAN CORPUSCULAR VOLUME 81.2 fl (80.0-96.0); MONO # 0.6 10^3/uL (0.0-0.8); NEUTROPHILS # 4.6 10^3/uL (1.8-7.7); NEUTROPHILS % 56.3 % (36.0-66.0); PLATELET COUNT, AUTOMATED 335 10^3/uL (150-450); RED BLOOD COUNT 4.47 10^6/uL (4.00-5.40); WHITE BLOOD COUNT 8.2 10^3/uL (4.0-10.0)
[2018-08-14 16:36] LABS: CHLAMYDIA DNA AMPLIFICATION NEGATIVE (NEGATIVE); GC DNA AMPLIFICATION NEGATIVE (NEGATIVE)
[2018-08-15 10:41] LABS: HEPATITIS C VIRUS ABY INDEX 0.1 INDEX (<0.8); HIV 1&2 SCREEN CENTAUR NEGATIVE (NEGATIVE); RUBELLA IgG QUALITATIVE IMMUNE (IMMUNE)
== END ==
LOC: M SMT 10:02
PROVIDERS: ATTEND Specialist
DX: Z34.81 Encounter for supervision of other normal pregnancy, first trimester (principal); Z3A.09 9 weeks gestation of pregnancy

== ENCOUNTER 2018-09-10 13:31 | Emergency (ER) | payer OTHER ==
[~2018-09-10] VITALS: Ht 162.6 cm; Wt 59.5 kg
[2018-09-10] MEDS ORDERED: ESCI10TA2 PO (16:12)
[2018-09-10] MEDS ORDERED: HYDR-643 PO (16:12)
[2018-09-10] MEDS ORDERED: ONDANSETRON 4MG/2ML VIAL (J2405) IV ONE (17:30)
[2018-09-10] MEDS ORDERED: NS 1,000 ML IV ONE (17:30)
[2018-09-10 17:56] LABS: BASO # 0.1 10^3/uL (0.0-0.2); BASO % 0.4 % (0.0-1.0); EOS % 0.1 % (0.0-3.0); HEMATOCRIT 37.6 % (36.0-47.0); HEMOGLOBIN 12.7 g/dl (12.0-15.5); LYMPH # 1.4 10^3/uL (1.5-6.5); LYMPH % 9.8 % (24.0-44.0); MEAN CORPUSCULAR HEMOGLOBIN 27.4 pg (27.0-33.0); MEAN CORPUSCULAR HGB CONC 33.8 g/dl (32.0-36.5); MEAN CORPUSCULAR VOLUME 81.2 fl (80.0-96.0); MONO # 0.7 10^3/uL (0.0-0.8); MONO % 4.8 % (0.0-5.0); NEUTROPHILS # 11.8 10^3/uL (1.8-7.7); NEUTROPHILS % 84.5 % (36.0-66.0); PLATELET COUNT, AUTOMATED 303 10^3/uL (150-450); RED BLOOD COUNT 4.63 10^6/uL (4.00-5.40); WHITE BLOOD COUNT 13.9 10^3/uL (4.0-10.0)
[2018-09-10 18:39] LABS: BLOOD UREA NITROGEN 7 MG/DL (7-18); CALCIUM LEVEL 8.5 MG/DL (8.5-10.1); CARBON DIOXIDE LEVEL 27 MEQ/L (21-32); CHLORIDE LEVEL 100 MEQ/L (98-107); CREATININE FOR GFR 0.61 MG/DL (0.55-1.30); GLOMERULAR FILTRATION RATE > 60.0 (>60); GLUCOSE, FASTING 92 MG/DL (70-100); HCG, SERUM QUANTITATIVE 99511 MIU/ML; POTASSIUM SERUM 3.3 MEQ/L (3.5-5.1); SODIUM LEVEL 136 MEQ/L (136-145)
[2018-09-10] MEDS ORDERED: PROMETHAZINE INJ 25 MG/ML VIAL (J2550) IV ONE (19:00)
--- NOTE | 2018-09-10 19:00 | REP ---
Emergency first trimester obstetric sonography: History: Abdomen pain. Findings: Transabdominal scanning demonstrates a viable single intrauterine gestation in a free-floating lie. The embryonic pole measures 61.3 mm in crown-rump length. This corresponds with a gestational age estimate of 12 weeks 4 days. heart rate was recorded at 173 beats per minute. No subchorionic hemorrhage is seen. There is a 2.6 cm cyst in the maternal right ovary consistent with corpus luteum. Impression: Viable single intrauterine gestation at 12 weeks 4 days by crown-rump length. TONYA by sonography March 21, 2019. No complication is identified. Electronically Signed by Yahir Vicente MD 09/10/2018 07:13 P
[2018-09-10] MEDS ORDERED: cefTRIAXone SOD 1 GM in D5W MINI-BAG PLUS 50 ML IV ONE (20:15)
[2018-09-10] MEDS ORDERED: ZOFR4TAB16 PO (20:17)
[2018-09-10] MEDS ORDERED: SUPR400C PO (20:17)
[2018-09-10 20:43] VITALS: BP 106/57
[2018-09-10 21:24] LABS: CHLAMYDIA DNA AMPLIFICATION NEGATIVE (NEGATIVE); GC DNA AMPLIFICATION NEGATIVE (NEGATIVE)
== END 2018-09-10 21:16 | disposition home or self-care (01) ==
LOC: M ED 13:31
DX: O23.41 Unspecified infection of urinary tract in pregnancy, first trimester (principal); O21.9 Vomiting of pregnancy, unspecified; O99.341 Other mental disorders complicating pregnancy, first trimester; F41.0 Panic disorder [episodic paroxysmal anxiety]; Z88.8 Allergy status to other drugs, medicaments and biological substances; Z79.899 Other long term (current) drug therapy; Z3A.12 12 weeks gestation of pregnancy
CPT/HCPCS: 76801; 80048; 81001; 84702; 85025; 86900; 86901; 87086; 87210; 87491; 87591; 96361; 96365; 96375; 99284; J0696; J2405

== ENCOUNTER → 2018-09-16 | Outpatient (REF) | payer OTHER ==
[~2018-09-16] MED LIST changes: +ESCI10TA2 PO; +HYDR-643 PO; +SUPR400C PO; +ZOFR4TAB16 PO
== END ==
LOC: M SFHCLERA 11:33
PROVIDERS: ATTEND Physician Assistant
DX: M54.5 Low back pain (principal)

== ENCOUNTER → 2018-10-23 | Outpatient (CLI) | payer OTHER ==
[~2018-10-23] MED LIST changes: +IBUP600T42 PO; -IBUP60TA PO
--- NOTE | 2018-10-23 17:25 | REP ---
Obstetric sonography: Second trimester study. History: Supervision of for anatomy. Findings: Scanning through the gravid uterus demonstrates a viable single intrauterine gestation in a breech lie. motion is observed and heart rate is recorded at 136 beats per minute. A posterior grade 0 placenta is seen without evidence of previa or abruption. Amniotic fluid is subjectively normal. Closed cervical length measures 4.3 cm, viewed transabdominally. No extrauterine abnormality is observed. No anomaly is seen. The following anatomic structures are identified and felt to be sonographically unremarkable: cranium, choroid plexus, cavum, cerebellum and posterior fossa, face and profile, lungs, four-chamber heart with left and right ventricular outflow tract views, diaphragm, left-sided stomach, abdominal wall cord insertion, three-vessel cord, kidneys and bladder, spine, upper and lower extremities. Biometry chart: BPD 4.0 cm = 18 weeks 1 day HC 15.0 cm = 18 weeks 0 days AC 13.6 cm = 19 weeks 0 days FL 2.9 cm = 19 weeks 0 days HL 2.8 cm = 19 weeks 0 days CD 1.9 cm = 18 weeks 4 days HC/AC ratio normal 1.10. Cephalic index normal 0.74. Estimated weight 262 grams, 0 pounds 9 ounces, 53rd percentile for 18 weeks 5 days. Impression: Viable single intrauterine gestation at 18 weeks 4 days by today's composite sonographic criteria. TONYA by today's sonography March 22, 2019. anatomic survey is felt to be complete. Electronically Signed by Yahir Vicente MD 10/24/2018 08:16 A
== END ==
LOC: M RAD 14:34
PROVIDERS: ATTEND Specialist
DX: Z34.82 Encounter for supervision of other normal pregnancy, second trimester (principal); Z3A.18 18 weeks gestation of pregnancy

== ENCOUNTER → 2018-11-05 | Outpatient (CLI) | payer OTHER ==
[2018-11-05 18:58] LABS: ALT/SGPT 16 U/L (12-78); BILIRUBIN,DIRECT < 0.1 MG/DL (0.0-0.2); BILIRUBIN,TOTAL 0.2 MG/DL (0.2-1.0); TOTAL PROTEIN 7.1 GM/DL (6.4-8.2)
== END ==
LOC: M SMT 15:21
PROVIDERS: ATTEND Specialist
DX: O26.612 Liver and biliary tract disorders in pregnancy, second trimester (principal); Z3A.00 Weeks of gestation of pregnancy not specified

== ENCOUNTER 2018-12-24 19:14 | Outpatient (CLI) | payer OTHER ==
[~2018-12-24] VITALS: Ht 162.6 cm; Wt 74.6 kg
[~2018-12-24 19:14] MED LIST changes: -LEXA1TAB2 PO; -NITR100C2 PO
[2018-12-24 19:38] VITALS: BP 118/69
[2018-12-24] MEDS ORDERED: LEXA1TAB2 PO (19:49)
[2018-12-24] MEDS ORDERED: FLUCONAZOLE 50MG TABLET PO SCH (22:00)
[2018-12-24] MEDS ORDERED: NITROFURANTOIN (MACROBID) 100 MG CAP PO ONE (22:00)
[2018-12-24] MEDS ORDERED: NITR100C2 PO (22:02)
--- NOTE | 2018-12-24 22:33 | REPVR ---
EXAM: US , Transvaginal EXAM DATE/TIME: 12/24/2018 9:04 PM CLINICAL HISTORY: 28 years old, female; Signs and symptoms; Lmp or gestational age (in weeks): 26w6d; Antepartum complications; Other: contractions; TECHNIQUE: Imaging protocol: Real-time transvaginal obstetrical ultrasound of the maternal pelvis and a first trimester with image documentation. Transvaginal imaging was used for better evaluation of the fetus and adnexa. COMPARISON: US OBS SINGEL GEST 10/23/2018 2:43 PM FINDINGS: GESTATION: Gestation: Single leg intrauterine in breech position. Heart rate: heart rate is 153 beats per minute. Presentation: Breech presentation Placenta: Placenta is posterior. No abruption or previa. MATERNAL: Cervix: Maternal cervical length measures 4.1 cm transvaginally. Funneling of the internal os was not visualized. IMPRESSION: Single leg intrauterine in breech position. Maternal cervical length measures 4.1 cm transvaginally. Funneling of the internal os was not visualized. Placenta is posterior. No abruption or previa. Electronically signed by: Brittaney Curiel On 12/24/2018 22:33:11 PM
--- NOTE | 2018-12-24 22:42 | IPNPDOC ---
Text Note Date of Service The patient was seen on 12/24/18. NOTE Subjective: Patient is a 28-year-old female who is a at 26 weeks 6 days gestation with an TONYA of 03/26/19 based off of her 1st trimester ultrasound. Her has been complicated by a history of a prior followed by a successful . It has also been complicated by anxiety and depression. Patient is taking Lexapro daily and hydroxyzine PRN. She presents to L&D today with complaints of back pain that has been occurring for 24 hours. A urine was obtained this morning from the office and sent for culture. She also had a sono done of her kidneys as she was complaining of pain that radiated up her back from her lower back. She does reports some cramping. She states her pain in her back is coming and going and is about every 6-19 minutes for the last 2 hours. Her back pain comes in waves and happened for a few hours last night and improved and again today multiple times and now tonight. She does not report that her back pain has increased in intensity over time. She does reports some vaginal itching. She denies vaginal odor. States baby is active. Denies vaginal bleeding or leaking of fluid. The patient reports her pain does not feel muscular. She denies taking any Tylenol to see if it helped with her pain. Objective: FHR is 150 with moderate variability, no decelerations, and 1 noted acceleration. Appropriate for 26 weeks gestation-Category I FHR tracing. Contractions are every 2-10 minutes or more lasting 30-60 seconds. Abdomen is soft to palpation and non-tender to touch. No CVA tenderness. Cervical length: see below. Speculum exam done. Cervix appears long/thick/closed.. There is thick, white, clumpy adherent discharge noted. Wet prep done showing yeast buds. Assessment: IUP at 26.6 weeks gestation, low back pain, not in labor, candidiasis of the vulva/vagina, urinary tract infection Plan: Script for Diflucan ordered for prior to discharge. Macrobid ordered now and script sent to pharmacy. Reviewed comfort measures for back pain including a warm bath and Tylenol. Patient has an appointment tomorrow with Dr. Lancaster. Encouraged to keep appointment. Patient instructed to call with labor signs, vaginal bleeding, leaking of fluid, decreased movement, increased back pain, or abdominal trauma. Patient verbalized understanding. Discharged ot home. VS,Fishbone, I+O VS, Fishbone, I+O Vital Signs Date Time Temp Pulse Resp B/P (MAP) Pulse Ox O2 Delivery O2 Flow Rate FiO2 12/24/18 19:38 98.2 109 118/69 (85) CLINICAL HISTORY: 28 years old, female; Signs and symptoms; Lmp or gestational age (in weeks): 26w6d; Antepartum complications; Other: contractions; TECHNIQUE: Imaging protocol: Real-time transvaginal obstetrical ultrasound of the maternal pelvis and a first trimester with image documentation. Transvaginal imaging was used for better evaluation of the fetus and adnexa. COMPARISON: US OBS SINGEL GEST 10/23/2018 2:43 PM FINDINGS: GESTATION: Gestation: Single leg intrauterine in breech position. Heart rate: heart rate is 153 beats per minute. Presentation: Breech presentation Placenta: Placenta is posterior. No abruption or previa. MATERNAL: Cervix: Maternal cervical length measures 4.1 cm transvaginally. Funneling of the internal os was not visualized. IMPRESSION: Single leg intrauterine in breech position. Maternal cervical length measures 4.1 cm transvaginally. Funneling of the internal os was not visualized. Placenta is posterior. No abruption or previa. Electronically signed by: Brittaney Curiel On 12/24/2018 22:33:11 PM BERNARDO FERNANDO CNM Dec 24, 2018 22:42
== END 2018-12-24 22:05 | disposition home or self-care (01) ==
LOC: M LDO 19:14
PROVIDERS: ATTEND Advanced Practice Midwife
DX: O26.892 Other specified pregnancy related conditions, second trimester (principal); M54.5 Low back pain; O23.592 Infection of other part of genital tract in pregnancy, second trimester; B37.3 Candidiasis of vulva and vagina; O23.42 Unspecified infection of urinary tract in pregnancy, second trimester; Z3A.26 26 weeks gestation of pregnancy

== ENCOUNTER → 2018-12-24 | Outpatient (REF) | payer OTHER ==
[~2018-12-24] MED LIST changes: +LEXA1TAB2 PO; +NITR100C2 PO
== END ==
LOC: M LAB REF 12:55
PROVIDERS: ATTEND Advanced Practice Midwife
DX: R30.0 Dysuria (principal)

== ENCOUNTER → 2018-12-24 | Outpatient (CLI) | payer OTHER ==
--- NOTE | 2018-12-24 17:30 | REP ---
RENAL AND BLADDER ULTRASOUND: Real-time sonographic evaluation of the kidneys are performed. The kidneys are normal in size and echo texture, right kidney measuring 12.4 x 4.9 x 4.7 cm and left kidney 12.5 x 6.4 x 6.1 cm. There is no hydronephrosis or nephrolithiasis bilaterally. Urinary bladder is distended with no evidence of calculus. Bilateral ureteral jets are seen in the urinary bladder with Doppler color evaluation. Patient is and the heart rate is 145 beats per minute. IMPRESSION: No hydronephrosis or nephrolithiasis. Electronically Signed by Emeterio Mitchell MD 12/25/2018 04:24 P
== END ==
LOC: M RAD 14:32
PROVIDERS: ATTEND Advanced Practice Midwife
DX: M54.5 Low back pain (principal)

== ENCOUNTER → 2018-12-27 | Outpatient (REF) | payer OTHER ==
[~2018-12-27] MED LIST changes: +LEXA1TAB2 PO; +NITR100C2 PO
[2018-12-27 17:40] LABS: FREE T3 2.6 PG/ML (2.2-4.0); FREE T4 0.7 NG/DL (0.76-1.46); THYROID STIMULATING HORMONE 1.37 uIU/ML (0.358-3.740)
== END ==
LOC: M SFHCPLAZ 15:07
DX: R00.0 Tachycardia, unspecified (principal)

== ENCOUNTER → 2019-01-18 | Outpatient (CLI) | payer OTHER ==
[2019-01-18 13:34] LABS: BASO % 0.5 % (0.0-1.0); EOS # 0.2 10^3/uL (0.0-0.50); EOS % 2.5 % (0.0-3.0); HEMOGLOBIN 8.6 g/dl (12.0-15.5); LYMPH # 1.8 10^3/uL (1.5-6.5); LYMPH % 21.7 % (24.0-44.0); MEAN CORPUSCULAR HEMOGLOBIN 23.1 pg (27.0-33.0); MEAN CORPUSCULAR HGB CONC 30.7 g/dl (32.0-36.5); MEAN CORPUSCULAR VOLUME 75.3 fl (80.0-96.0); MONO # 0.6 10^3/uL (0.0-0.8); MONO % 6.8 % (0.0-5.0); NEUTROPHILS # 5.5 10^3/uL (1.8-7.7); NEUTROPHILS % 67.3 % (36.0-66.0); PLATELET COUNT, AUTOMATED 227 10^3/uL (150-450); RED BLOOD COUNT 3.72 10^6/uL (4.00-5.40); WHITE BLOOD COUNT 8.2 10^3/uL (4.0-10.0)
== END ==
LOC: M SMT 09:06
PROVIDERS: ATTEND Specialist
DX: Z36.89 Encounter for other specified antenatal screening (principal); Z3A.27 27 weeks gestation of pregnancy

== ENCOUNTER 2019-01-22 11:35 | Emergency (ER) | payer OTHER ==
[~2019-01-22] VITALS: Ht 162.6 cm; Wt 75.0 kg
[2019-01-22] MEDS ORDERED: NS 1,000 ML IV ONE ×2 (11:45→13:30)
[2019-01-22 12:10] LABS: BASO % 0.2 % (0.0-1.0); EOS # 0.2 10^3/uL (0.0-0.50); EOS % 2.3 % (0.0-3.0); HEMATOCRIT 28.2 % (36.0-47.0); HEMOGLOBIN 8.8 g/dl (12.0-15.5); LYMPH # 1.6 10^3/uL (1.5-6.5); LYMPH % 19.1 % (24.0-44.0); MEAN CORPUSCULAR HEMOGLOBIN 23.8 pg (27.0-33.0); MEAN CORPUSCULAR HGB CONC 31.2 g/dl (32.0-36.5); MEAN CORPUSCULAR VOLUME 76.2 fl (80.0-96.0); MONO # 0.6 10^3/uL (0.0-0.8); MONO % 6.9 % (0.0-5.0); NEUTROPHILS # 5.9 10^3/uL (1.8-7.7); NEUTROPHILS % 70.3 % (36.0-66.0); PLATELET COUNT, AUTOMATED 181 10^3/uL (150-450); WHITE BLOOD COUNT 8.4 10^3/uL (4.0-10.0)
[2019-01-22 12:41] LABS: ALBUMIN 2.5 GM/DL (3.2-5.2); ALT/SGPT 13 U/L (12-78); BILIRUBIN,TOTAL 0.1 MG/DL (0.2-1.0); BLOOD UREA NITROGEN 7 MG/DL (7-18); CALCIUM LEVEL 8.5 MG/DL (8.5-10.1); CARBON DIOXIDE LEVEL 23 MEQ/L (21-32); CHLORIDE LEVEL 107 MEQ/L (98-107); GLOMERULAR FILTRATION RATE > 60.0 (>60); GLUCOSE, FASTING 117 MG/DL (70-100); POTASSIUM SERUM 3.3 MEQ/L (3.5-5.1); SODIUM LEVEL 139 MEQ/L (136-145); TOTAL PROTEIN 6.2 GM/DL (6.4-8.2)
[2019-01-22] MEDS ORDERED: POTASSIUM CHLORIDE 10 MEQ SR TABLET PO ONE (13:30)
[2019-01-22 13:42] LABS: FREE THYROXINE INDEX 2.6 % (1.3-4.8); MAGNESIUM LEVEL 1.7 MG/DL (1.8-2.4); T UPTAKE 23 % (30-39); THYROXINE (T4) 11.1 UG/DL (4.5-12.0)
[2019-01-22] MEDS ORDERED: MAG SULF 1GM/100ML (MAG RUN) 1 GM in APPROPRIATE DILUENT 1 EA IV ONE (15:00)
[2019-01-22 15:43] VITALS: BP 105/62
--- NOTE | 2019-01-23 08:59 | ECGEPIP ---
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
== END 2019-01-22 16:22 | disposition home or self-care (01) ==
LOC: EDBD 11:35 → M ED 11:35
DX: O99.283 Endocrine, nutritional and metabolic diseases complicating pregnancy, third trimester (principal); E87.6 Hypokalemia; E83.42 Hypomagnesemia; I49.3 Ventricular premature depolarization; Z3A.31 31 weeks gestation of pregnancy; Z88.8 Allergy status to other drugs, medicaments and biological substances; Z79.899 Other long term (current) drug therapy
CPT/HCPCS: 80053; 83735; 84436; 84443; 84479; 85025; 93005; 96361; 96365; 99285; J3475

== ENCOUNTER → 2019-01-30 | Outpatient (CLI) | payer OTHER ==
[~2019-01-30] MED LIST changes: +FERR1TAB8 PO; +KLOR10TA76 PO
[2019-01-30 17:35] LABS: HEMATOCRIT 29.2 % (36.0-47.0); HEMOGLOBIN 8.7 g/dl (12.0-15.5); MEAN CORPUSCULAR HEMOGLOBIN 22.3 pg (27.0-33.0); MEAN CORPUSCULAR HGB CONC 29.8 g/dl (32.0-36.5); MEAN CORPUSCULAR VOLUME 74.7 fl (80.0-96.0); PLATELET COUNT, AUTOMATED 229 10^3/uL (150-450); RED BLOOD COUNT 3.91 10^6/uL (4.00-5.40); WHITE BLOOD COUNT 10.4 10^3/uL (4.0-10.0)
[2019-01-30 17:36] LABS: ALBUMIN 2.9 GM/DL (3.2-5.2); ALT/SGPT 12 U/L (12-78); BILIRUBIN,TOTAL 0.4 MG/DL (0.2-1.0); BLOOD UREA NITROGEN 6 MG/DL (7-18); CALCIUM LEVEL 8.8 MG/DL (8.5-10.1); CARBON DIOXIDE LEVEL 24 MEQ/L (21-32); CHLORIDE LEVEL 104 MEQ/L (98-107); CREATININE FOR GFR 0.46 MG/DL (0.55-1.30); GLOMERULAR FILTRATION RATE > 60.0 (>60); GLUCOSE, FASTING 63 MG/DL (70-100); POTASSIUM SERUM 4.2 MEQ/L (3.5-5.1); SODIUM LEVEL 137 MEQ/L (136-145); TOTAL PROTEIN 6.8 GM/DL (6.4-8.2)
== END ==
LOC: M SMT 11:27
PROVIDERS: ATTEND Advanced Practice Midwife
DX: O99.013 Anemia complicating pregnancy, third trimester (principal); R11.10 Vomiting, unspecified; Z3A.00 Weeks of gestation of pregnancy not specified

== ENCOUNTER 2019-02-01 10:50 | Observation (INO) | payer OTHER ==
[~2019-02-01] VITALS: Ht 162.6 cm; Wt 77.6 kg
[~2019-02-01 10:50] MED LIST changes: -FERR1TAB8 PO; -KLOR10TA76 PO
[2019-02-01 11:42] LABS: BASO % 0.4 % (0.0-1.0); EOS # 0.2 10^3/uL (0.0-0.50); EOS % 1.6 % (0.0-3.0); HEMATOCRIT 29.3 % (36.0-47.0); LYMPH % 19.4 % (24.0-44.0); MEAN CORPUSCULAR HEMOGLOBIN 22.8 pg (27.0-33.0); MEAN CORPUSCULAR HGB CONC 30.7 g/dl (32.0-36.5); MEAN CORPUSCULAR VOLUME 74.2 fl (80.0-96.0); MONO # 0.8 10^3/uL (0.0-0.8); MONO % 7.4 % (0.0-5.0); NEUTROPHILS # 7.1 10^3/uL (1.8-7.7); NEUTROPHILS % 69.6 % (36.0-66.0); PLATELET COUNT, AUTOMATED 216 10^3/uL (150-450); RED BLOOD COUNT 3.95 10^6/uL (4.00-5.40); WHITE BLOOD COUNT 10.2 10^3/uL (4.0-10.0)
[2019-02-01] MEDS ORDERED: NS 1,000 ML IV ONE (12:00)
[2019-02-01 12:19] LABS: BLOOD UREA NITROGEN 7 MG/DL (7-18); CALCIUM LEVEL 9.1 MG/DL (8.5-10.1); CARBON DIOXIDE LEVEL 22 MEQ/L (21-32); CHLORIDE LEVEL 107 MEQ/L (98-107); CK-MB VALUE MASS 1.1 NG/ML (<3.6); CPK CREATINE PHOSPHOKINASE 63 U/L (26-192); GLOMERULAR FILTRATION RATE > 60.0 (>60); GLUCOSE, FASTING 87 MG/DL (70-100); MB/CK RELATIVE INDEX 1.75 (< OR =4); POTASSIUM SERUM 3.6 MEQ/L (3.5-5.1); SODIUM LEVEL 139 MEQ/L (136-145); TROPONIN I < 0.02 NG/ML (< 0.10)
[2019-02-01 12:51] LABS: INR 1.04; PARTIAL THROMBOPLASTIN TIME 26.2 SECONDS (25.0-38.4); PROTHROMBIN TIME 13.3 SECONDS (11.8-14.0)
[2019-02-01 12:59] LABS: ALBUMIN 2.6 GM/DL (3.2-5.2); ALT/SGPT 12 U/L (12-78); BILIRUBIN,DIRECT < 0.1 MG/DL (0.0-0.2); BILIRUBIN,TOTAL 0.3 MG/DL (0.2-1.0); TOTAL PROTEIN 7.1 GM/DL (6.4-8.2)
--- NOTE | 2019-02-01 15:48 | ECHO ---
DATE OF STUDY: 02/01/2019 REFERRING PHYSICIAN: Dr. Leonid Martinez INDICATION: Syncope. HEIGHT: 64 inches WEIGHT: 76 kg 2-D MEASUREMENTS: Aortic root: 2.9 cm Aortic annulus: 2.3 cm Left atrium: 3.3 cm Ventricular septum: 0.87 cm Posterior wall: 0.87 cm Left ventricle diastole: 5.4 cm Inferior vena cava: 1.7 cm (more than 50% respiratory variation) DOPPLER MEASUREMENTS: No aortic regurgitation. No aortic stenosis. Aortic valve velocity: 106 cm/s LVOT velocity: 84.5 cm/s Very mild mitral regurgitation. Mitral E velocity: 54.7 cm/s Mitral A velocity: 73.7 cm/s Mitral deceleration time: 209 ms Very mild tricuspid regurgitation. Estimated right ventricle systolic pressure 20-25 mmHg assuming an atrial pressure of 5-10 mmHg. Very mild pulmonic regurgitation. Pulmonary artery systolic pressure: 27 mmHg MITRAL ANNULAR TISSUE DOPPLER: E prime septal: 7.94 cm/s E prime lateral: 10.2 cm/s DESCRIPTION: Rhythm was sinus with at times frequent uniformed premature ventricular contractions (PVCs). This is a 2-D, M-mode, color flow Doppler and pulse waved Doppler examination and included mitral annular tissue Doppler. No pericardial effusion. CONCLUSIONS: 1. Normal echocardiogram-Doppler other than observation of frequent uniformed PVCs. 2. Normal left and right ventricular systolic pressure. 3. Normal left ventricle regional wall motion and wall thickening. Left ventricular ejection fraction (LVEF) 60% by visual estimate. Normal LV diastolic function.
[2019-02-01] MEDS ORDERED: POTASSIUM CHLORIDE 10 MEQ SR TABLET PO ONE (17:00)
[2019-02-01] MEDS: FERROUS SULFATE 325MG TAB PO SCH ×2 (17:23→20:48)
[2019-02-01 17:40] VITALS: BP 105/53
--- NOTE | 2019-02-01 17:52 | REP ---
Obstetric ultrasound, third trimester, stat request for anemia during : The study is a limited ultrasound evaluation. There is a single intrauterine gestation in a transverse lie with the head to the maternal left. The heart rate is 144 beats per minute. The placenta is posterior / right lateral and grade 1. There is no placenta previa. There is no placental abruptio. The amniotic fluid volume subjectively is normal. The amniotic fluid index is 13.1 (8.3 - 24.5). Cervix measures 4.5 cm length. Gestational age based on the first ultrasound is 33 weeks 1 day/TONYA 03/21/2019. Gestational age by LMP is 32 weeks 3 days/TONYA 03/26/2019. No further evaluation is requested or performed at this time. Electronically Signed by Emeterio Arzate MD 02/01/2019 05:43 P
[2019-02-01 20:00] VITALS: BP 93/52
[2019-02-01] MEDS ORDERED: ACETAMINOPHEN 325 MG TAB PO PRN (20:45)
[2019-02-01 23:59] VITALS: BP 100/60
[2019-02-02 04:00] VITALS: BP 97/53
[2019-02-02 08:00] VITALS: BP 100/51
[2019-02-02] MEDS: FERROUS SULFATE 325MG TAB PO SCH ×2 (09:21→15:48)
--- NOTE | 2019-02-02 09:31 | ECGEPIP ---
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
[2019-02-02 11:39] LABS: HEMATOCRIT 28.1 % (36.0-47.0); HEMOGLOBIN 8.4 g/dl (12.0-15.5); MEAN CORPUSCULAR HEMOGLOBIN 22.6 pg (27.0-33.0); MEAN CORPUSCULAR HGB CONC 29.9 g/dl (32.0-36.5); MEAN CORPUSCULAR VOLUME 75.5 fl (80.0-96.0); PLATELET COUNT, AUTOMATED 208 10^3/uL (150-450); RED BLOOD COUNT 3.72 10^6/uL (4.00-5.40); WHITE BLOOD COUNT 9.3 10^3/uL (4.0-10.0)
[2019-02-02 12:02] LABS: ALBUMIN 2.3 GM/DL (3.2-5.2); ALT/SGPT 10 U/L (12-78); BILIRUBIN,TOTAL 0.3 MG/DL (0.2-1.0); BLOOD UREA NITROGEN 5 MG/DL (7-18); CALCIUM LEVEL 8.6 MG/DL (8.5-10.1); CARBON DIOXIDE LEVEL 24 MEQ/L (21-32); CHLORIDE LEVEL 108 MEQ/L (98-107); GLOMERULAR FILTRATION RATE > 60.0 (>60); GLUCOSE, FASTING 109 MG/DL (70-100); MAGNESIUM LEVEL 1.9 MG/DL (1.8-2.4); POTASSIUM SERUM 3.8 MEQ/L (3.5-5.1); SODIUM LEVEL 138 MEQ/L (136-145); TOTAL PROTEIN 6.5 GM/DL (6.4-8.2)
[2019-02-02] MEDS ORDERED: POTASSIUM CHLORIDE 10 MEQ SR TABLET PO ONE (14:15)
[2019-02-02] MEDS ORDERED: KLOR10TA76 PO (15:20)
[2019-02-02] MEDS ORDERED: FERR1TAB8 PO (15:21)
--- NOTE | 2019-02-02 16:06 | NUR ---
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 Presented to ED on 02/02/19 with complaint of near syncopal episode. She has had many episodes of presyncope / syncope throughout this . She is followed by Dr. Rebolledo, and has been evaluated with a 30 day event monitor. Intermittent PVC's the only finding on the event monitor. She is not on any cardiovascular / antiarrhythmic medications. She denies any VB/LOF/uctx. +FM. PMH: anxiety / depression, hypothyroidism SH: LTCSx1, tonsillectomy Meds: PNV, lexapro 10mg, hydroxyzine 10mg All: diphenhydramine COOK BOAT: no dysplasia/STI/gHSV OB: term , term LTCS (NRFHR), term (Jul 2017) Sochx: no t/e/d Normotensive, normal HR, afebrile H: RRR L: CTAB ABD: soft, nt,nd, uterine fundus nontender Ext: no c/c/e 12 lead EKG: sinus tach w/ intermittent PVC See labs in [employer] NST Reactive, mod ammon, no decels Azure: no ctxs US: see [facility] (normal) A/P: 28yo at 32+4 weeks with PVC's. Mild LUCILLE. Reassuring status. -OBS status overnight -Replete K+ -Start FeSO4 BID-TID -Telemetry Samir Rodarte DO
--- NOTE | 2019-02-02 17:29 | NUR ---
Progress Note Echo: normal (see report) No cardiac events during observation period K+ improved. Tele: NSR with rare ectopic beat /PVC VSS, normotensive, afebrile Abd: soft, nt, nd A/P: 32+5 weeks. Stable maternal and status. Improved. No events during OBS status. -D/c home -Pain, fever, infectious, bleeding, third trimester precautions reviewed -Discharge medications: PNV, FeSO4, KCL 10mEq daily -Keep appt for Fe infusion on 02/05/19 Samir Rodarte DO
== END 2019-02-02 18:13 | disposition home or self-care (01) ==
LOC: M ED 10:50 → M ED INP 10:51 → M PCU 17:35
PROVIDERS: ADMIT Obstetrics & Gynecology; ATTEND Obstetrics & Gynecology
DX: O26.893 Other specified pregnancy related conditions, third trimester (principal); R55 Syncope and collapse; O99.413 Diseases of the circulatory system complicating pregnancy, third trimester; I49.3 Ventricular premature depolarization; O99.013 Anemia complicating pregnancy, third trimester; D50.9 Iron deficiency anemia, unspecified; Z3A.32 32 weeks gestation of pregnancy

== ENCOUNTER → 2019-02-04 | Outpatient (CLI) | payer OTHER ==
[~2019-02-04] MED LIST changes: +FERR1TAB8 PO; +KLOR10TA76 PO; +OXYC1TAB23 PO; +RANI15TA PO
--- NOTE | 2019-02-04 18:06 | REP ---
Clinical: well-being. Comparison: 02/01/2019 . Findings: Examination demonstrates a single live intrauterine in transverse lie with head to maternal right presentation. motion is identified by technologist. Placenta is noted right posterior and grade 1/2 without evidence for placenta previa or abruption. Placental tip is 2 cm from the closed internal os. Amniotic fluid volume is normal. Cervix measures 4.3 cm in length and appears closed. No evidence for nuchal cord. Gestational age by LMP 32 weeks 6 days with TONYA 03/26/2019 . Gestational age by current measurements 33 weeks 0 days with TONYA 03/25/2019 . FHR equals 135 beats per minute. BPD 7.8 cm 31 weeks 2 days HC 30.0 cm 33 weeks 2 days AC 30.5 cm 34 weeks 3 days FL 6.4 cm 33 weeks 0 days HL 5.7 cm 32 weeks 6 days HC/AC ratio 0.99 Estimated weight 2233 grams ( 46th percentile). Biophysical profile score: 8/8 Amniotic fluid index: 8.8 cm (8.2 - 24.7). Umbilical cord SD ratio: 2.14 (2.00 - 3.00) Impression: Single live intrauterine in transverse lie demonstrating appropriate interval growth. Amniotic fluid volume and biophysical profile score are normal. Electronically Signed by Db Mendoza MD 02/04/2019 05:57 P
== END ==
LOC: M RAD 15:55
PROVIDERS: ATTEND Advanced Practice Midwife
DX: Z36.9 Encounter for antenatal screening, unspecified (principal); Z3A.33 33 weeks gestation of pregnancy

== ENCOUNTER 2019-02-05 09:11 | Outpatient (CLI) | payer OTHER ==
[~2019-02-05] VITALS: Ht 162.6 cm; Wt 75.6 kg
[~2019-02-05 09:11] MED LIST changes: -OXYC1TAB23 PO; -RANI15TA PO
[2019-02-05 09:29] VITALS: BP 129/86
[2019-02-05] MEDS ORDERED: IRON SUCROSE 500 MG in NS 250 ML OVER 4 HRS IV ONE (10:00)
[2019-02-05 10:19] VITALS: BP 101/63
[2019-02-05 10:59] VITALS: BP 100/59
[2019-02-05 12:00] VITALS: BP 109/61
[2019-02-05 13:00] VITALS: BP 112/62
[2019-02-05 14:29] VITALS: BP 118/66
== END 2019-02-05 15:00 ==
LOC: M INFU 09:11
PROVIDERS: ATTEND Advanced Practice Midwife
DX: D50.9 Iron deficiency anemia, unspecified (principal)
CPT/HCPCS: 96365; 96366; J1756

== ENCOUNTER 2019-02-11 12:17 | Outpatient (CLI) | payer OTHER ==
[~2019-02-11] VITALS: Ht 162.6 cm; Wt 76.7 kg
[2019-02-11 12:46] VITALS: BP 109/58
[2019-02-11] MEDS ORDERED: PERCOCET 5MG/325MG TAB PO ONE (13:15)
[2019-02-11] MEDS ORDERED: ONDANSETRON 4 MG ORAL DISINTEGRATING TAB (Q0162 PER 1MG) PO PRN (13:15)
[2019-02-11 13:41] LABS: AMORPHOUS SEDIMENT MODERATE (NEGATIVE); APPEARANCE, URINE CLOUDY (CLEAR); BACTERIA, URINE AUTO NEGATIVE (NEGATIVE); BILIRUBIN, URINE AUTO NEGATIVE (NEGATIVE); BLOOD, URINE BLOOD NEGATIVE (NEGATIVE); COLOR, URINE YELLOW (YELLOW); GLUCOSE, URINE (UA) AUTO NEGATIVE (NEGATIVE); KETONE, URINE AUTO NEGATIVE (NEGATIVE); LEUKOCYTE ESTERASE, URINE AUTO TRACE (NEGATIVE); MUCUS, URINE SMALL (NEGATIVE); NITRITE, URINE AUTO NEGATIVE (NEGATIVE); PROTEIN, URINE AUTO NEGATIVE (NEGATIVE); RBC, URINE AUTO 2 /HPF (0-3); SQUAMOUS EPITHELIAL CELL UR AU 10 /HPF (0-6); UROBILINOGEN, URINE AUTO 0.2 mg/dL (0.0-2.0); WBC, URINE AUTO 0 /HPF (0-3)
[2019-02-11 13:49] VITALS: BP 107/56
[2019-02-11 14:12] LABS: HEMATOCRIT 30.2 % (36.0-47.0); HEMOGLOBIN 9.1 g/dl (12.0-15.5); MEAN CORPUSCULAR HEMOGLOBIN 23.2 pg (27.0-33.0); MEAN CORPUSCULAR HGB CONC 30.1 g/dl (32.0-36.5); PLATELET COUNT, AUTOMATED 157 10^3/uL (150-450); RED BLOOD COUNT 3.92 10^6/uL (4.00-5.40); WHITE BLOOD COUNT 10.4 10^3/uL (4.0-10.0)
[2019-02-11 14:40] LABS: ALBUMIN 2.6 GM/DL (3.2-5.2); ALT/SGPT 12 U/L (12-78); BILIRUBIN,TOTAL 0.3 MG/DL (0.2-1.0); BLOOD UREA NITROGEN 6 MG/DL (7-18); CALCIUM LEVEL 8.7 MG/DL (8.5-10.1); CARBON DIOXIDE LEVEL 25 MEQ/L (21-32); CHLORIDE LEVEL 108 MEQ/L (98-107); GLOMERULAR FILTRATION RATE > 60.0 (>60); GLUCOSE, FASTING 76 MG/DL (70-100); POTASSIUM SERUM 3.6 MEQ/L (3.5-5.1); SODIUM LEVEL 139 MEQ/L (136-145); TOTAL PROTEIN 6.7 GM/DL (6.4-8.2)
[2019-02-11] MEDS ORDERED: PERCOCET 5MG/325MG TAB As Ordered ONE ×2 (14:40→14:41)
[2019-02-11 15:49] VITALS: BP 102/60
[2019-02-11 17:12] VITALS: BP 95/58
[2019-02-11 18:32] VITALS: BP 100/60
[2019-02-11] MEDS ORDERED: CYCLOBENZAPRINE 10 MG TAB PO ONE (19:00)
--- NOTE | 2019-02-11 19:44 | REPVR ---
EXAM: US Retroperitoneal Limited, Kidneys EXAM DATE/TIME: 02/11/2019 2:13 PM CLINICAL HISTORY: 28 years old, female; Abdominal pain; ; Additional info: Severe back pain-bilateral TECHNIQUE: Imaging protocol: Real-time ultrasound of the retroperitoneum with image documentation. Examination was focused on the kidneys. COMPARISON: RENAL US 12/24/2018 3:00 PM FINDINGS: Right kidney: Right kidney measures 13.2 x 5.4 x 4.8 cm. Left kidney: Left kidney measures 13.7 x 6.8 x 6.5 cm. Bladder: Bladder unremarkable. Bilateral ureteral jets demonstrated. IMPRESSION: Unremarkable examination. Electronically signed by: Yair Santos On 02/11/2019 19:44:09 PM
[2019-02-11] MEDS ORDERED: PERCOCET 5MG/325MG TAB PO PRN (21:45)
--- NOTE | 2019-02-11 21:51 | IPNPDOC ---
Text Note Date of Service The patient was seen on 02/11/19. NOTE Subjective: Patient is a 28-year-old female who is a at 33.6 weeks [facility] with an TONYA of 03/26/19. Her has been complicated by anxiety, panic attacks, a prior delivery with a successful , and anemia. She presents to L&D with complaints of low back pain. She reports intermittent low back pain that started 3 days ago and today the pain has increased. She thought she has a UTI and went to urgent care and her urine dip was negative. She report s pain to be a 7/10 in her back. Objective: VS, labs, and ultrasound: see below. FHR: 120, moderate variability, positive accelerations, no decelerations. Contractions: irregular. SVE closed/thick/high. No cervical change after 6 hours. A+Ox3; Respiratory: regular rate with no use of accessory muscles; Abdomen: soft and non-tender to touch; +CVA tenderness. Assessment: IUP at 33.6 weeks gestation, low back pain, not in labor, Category I FHR tracing. Plan: After discussing with Dr. Lancaster his recommendation is to watch patient overnight. Given Percocet, which helped bring pain to a tolerable level of 3/10 from 7/10. Flexeril did nothing to help her pain. Two more tabs of Percocet given to help make patient tolerable through the night. Patient complained of pain that wrapped around her abdomen from her back. Will continue to monitor overnight. VS,Fishbone, I+O VS, Fishbone, I+O Laboratory Tests 02/11/19 14:02 Red Blood Count 3.92 L, Mean Corpuscular Volume 77.0 L, Mean Corpuscular Hemoglobin 23.2 L, Mean Corpuscular Hemoglobin Concent 30.1 L, Red Cell Distribution Width 20.9 H, Calcium Level 8.7, Aspartate Amino Transf (AST/SGOT) 15, Alanine Aminotransferase (ALT/SGPT) 12, Alkaline Phosphatase 74, Total Bilirubin 0.3, Total Protein 6.7, Albumin 2.6 L Vital Signs Date Time Temp Pulse Resp B/P (MAP) Pulse Ox O2 Delivery O2 Flow Rate FiO2 02/11/19 18:32 75 18 100/60 (73) 02/11/19 17:12 97.2 EXAM: US Retroperitoneal Limited, Kidneys EXAM DATE/TIME: 02/11/2019 2:13 PM CLINICAL HISTORY: 28 years old, female; Abdominal pain; ; Additional info: Severe back pain-bilateral TECHNIQUE: Imaging protocol: Real-time ultrasound of the retroperitoneum with image documentation. Examination was focused on the kidneys. COMPARISON: RENAL US 12/24/2018 3:00 PM FINDINGS: Right kidney: Right kidney measures 13.2 x 5.4 x 4.8 cm. Left kidney: Left kidney measures 13.7 x 6.8 x 6.5 cm. Bladder: Bladder unremarkable. Bilateral ureteral jets demonstrated. IMPRESSION: Unremarkable examination. Electronically signed by: Yair Santos On 02/11/2019 19:44:09 PM BERNARDO FERNANDO CNM Feb 11, 2019 21:51
[2019-02-11] MEDS ORDERED: ESCITALOPRAM OXALATE 10 MG TAB (LEXAPRO) PO SCH (22:00)
[2019-02-11] MEDS: FERROUS GLUCONATE 324 MG TAB PO SCH (22:24)
[2019-02-11 22:26] VITALS: BP 105/57
[2019-02-12 04:42] VITALS: BP 87/53
[2019-02-12 04:43] VITALS: BP 89/54
[2019-02-12 05:05] VITALS: BP 102/63
[2019-02-12 07:24] VITALS: BP 79/45
[2019-02-12] MEDS ORDERED: OXYC1TAB23 PO (09:31)
[2019-02-12] MEDS ORDERED: RANI15TA PO (09:32)
[2019-02-12] MEDS: FERROUS GLUCONATE 324 MG TAB PO SCH (09:38)
== END 2019-02-12 09:50 | disposition home or self-care (01) ==
LOC: M LDO 12:17
PROVIDERS: ATTEND Advanced Practice Midwife
DX: O26.893 Other specified pregnancy related conditions, third trimester (principal); M54.5 Low back pain; O47.03 False labor before 37 completed weeks of gestation, third trimester; O99.343 Other mental disorders complicating pregnancy, third trimester; O99.013 Anemia complicating pregnancy, third trimester; Z3A.33 33 weeks gestation of pregnancy
CPT/HCPCS: 36415; 59025; 76775; 80053; 81001; 85027; Q0162

== ENCOUNTER 2019-03-21 07:12 | Inpatient (IN) | payer OTHER ==
[2019-03-21] VITALS (16 sets, daily range): BP systolic 91–117; BP diastolic 51–68
[~2019-03-21] VITALS: Ht 162.6 cm; Wt 80.1 kg
[~2019-03-21 07:12] MED LIST changes: +OXYC1TAB23 PO; +RANI15TA PO
[2019-03-21] MEDS ORDERED: PENICILLIN G POTASSIUM IV 5 MU in D5W MINI-BAG PLUS 100 ML IV STA ×2 (07:52→08:40)
[2019-03-21] MEDS ORDERED: OXYTOCIN DRIP 30 UNITS in IV 1 EA IV SCH ×2 (08:00→19:38)
[2019-03-21 08:27] LABS: HEMATOCRIT 36.6 % (36.0-47.0); MEAN CORPUSCULAR HGB CONC 32.8 g/dl (32.0-36.5); MEAN CORPUSCULAR VOLUME 79.2 fl (80.0-96.0); PLATELET COUNT, AUTOMATED 209 10^3/uL (150-450); RED BLOOD COUNT 4.62 10^6/uL (4.00-5.40); WHITE BLOOD COUNT 10.8 10^3/uL (4.0-10.0)
[2019-03-21] MEDS: LR 1,000 ML IV SCH ×3 (08:50→17:49)
--- NOTE | 2019-03-21 09:40 | HPE ---
DATE OF ADMISSION: 03/21/2019 CHIEF COMPLAINT: Induction of labor. HISTORY OF PRESENT ILLNESS: Ragini is a 29-year-old, (G) 4, para (P) 3-0-0-3, presenting for induction of labor secondary to psychiatric complaints and unrelenting pain. She is 39 weeks 2 days estimated gestational age by last menstrual period confirmed with first trimester ultrasound with an estimated date of delivery of 03/26/2019. She denies uterine contractions, spontaneous rupture of membranes, bleeding or discharge. She is feeling the baby move. She initiated care with [facility] in the first trimester and has been compliant with her medical care. Her care has been complicated by anxiety with multiple emergency room (ER) visits for palpitations and panic attacks. She has been seen by [facility]. She had an iron infusion for iron deficiency anemia on 02/05/2019. LABS: Blood type AB positive, antibody screen negative, rubella immune, VDRL nonreactive, hepatitis B surface antigen negative, HIV negative, hepatitis C nonreactive, chlamydia negative, gonorrhea negative. Diabetes screen was normal. She is GBS positive. OBSTETRICAL ULTRASOUND: Single intrauterine (IUP). Posterior placenta. No previa or abruption. BPP done 02/04/2019 was 8/8. OBSTETRICAL HISTORY: 1. In August 2014, she delivered a 7 pounds 6 ounces female at 41 weeks estimated gestational age via normal spontaneous vaginal delivery under epidural anesthesia. 2. In March 2016, she delivered a 6 pounds 14 ounces male infant at 40 weeks estimated gestational age by primary low transverse section secondary to distress under spinal anesthesia. 3. In July 2017, she delivered an 8 pounds 6 ounces male at 40 weeks and 4 days estimated gestational age via vaginal after with epidural anesthesia, vacuum assisted. PAST MEDICAL HISTORY: Includes anxiety, depression, depression, hypothyroidism and palpitations. PAST SURGICAL HISTORY: 2016, tonsillectomy. ALLERGIES: BENADRYL. SOCIAL HISTORY: The patient is . Denies tobacco, alcohol or drug use. HOME MEDICATIONS: - vitamins - Reglan 10 mg - Lexapro 10 mg - hydroxyzine 10 mg PHYSICAL EXAMINATION: Vitals: Temperature 97.8, pulse 87 and regular, respiratory rate 16, blood pressure 106/63. Abdomen: Gravid. Sterile Vaginal Exam: 1-2 cm, 50% effacement, -2 station. Cervix is posterior. heart rate is 145 beats per minute with moderate variability. [place]: No contractions. ASSESSMENT/PLAN: 1. This is a single intrauterine at 39 weeks 2 days estimated gestational age presenting for induction of labor secondary to psychiatric complains and unrelenting back pain. Will induce with Pitocin as the patient is a trial of labor after , plus or minus Cook catheter if needed. 2. The patient is GBS positive, will start penicillin. 3. Anticipate vaginal after . The patient was educated on risks of induction including, but not limited to need for repeat low transverse section. She is agreeable to the plan and will start with and induction of labor. GME ATTESTATION My faculty preceptor for this patient encounter was physically present during the encounter and was fully available. All aspects of the patient interview, examination, medical decision making process, and medical care plan development were reviewed and approved by the faculty preceptor. The faculty preceptor is aware and concurs with the plan as stated in the body of this note and will attest to such by his/her cosignature. RACHEL
[2019-03-21] MEDS ORDERED: PENICILLIN G POTASSIUM IV 2.5 MU in IV 1 EA IV SCH (12:00)
[2019-03-21] MEDS: PENICILLIN G POTASSIUM IV 2.5 MU in IV 1 EA IV SCH ×2 (13:01→17:07)
--- NOTE | 2019-03-21 14:17 | IPNPDOC ---
Text Note Date of Service The patient was seen on 03/21/19. NOTE Subjective: 29-year-old at 39.2 EGA for induction of labor. Pitocin at 20, patient is comfortable. Objective: Vital signs stable SVE: 3/60/-1 FHR: 145 BPM, moderate variability, accelerations no decelerations, category 1 [place]: Contractions every 2-5 minutes, lasting about 60 seconds Assessment/Plan: 29-year-old at 39.2 EGA for induction of labor (TOLAC). -GBS positive, receiving penicillin, 2 doses complete -AROM 1409, clear fluid -Pitocin at 20 -Anticipate VS,Fishbone, I+O VS, Fishbone, I+O Laboratory Tests 03/21/19 08:12 Red Blood Count 4.62, Mean Corpuscular Volume 79.2 L, Mean Corpuscular Hemoglobin 26.0 L, Mean Corpuscular Hemoglobin Concent 32.8, Red Cell Distribution Width 23.5 H Vital Signs Date Time Temp Pulse Resp B/P (MAP) Pulse Ox O2 Delivery O2 Flow Rate FiO2 03/21/19 12:57 98.1 71 16 105/57 (73) GME ATTESTATION GME ATTESTATION My faculty preceptor for this patient encounter was physically present during the encounter and was fully available. All aspects of the patient interview, examination, medical decision making process, and medical care plan development were reviewed and approved by the faculty preceptor. The faculty preceptor is aware and concurs with the plan as stated in the body of this note and will attest to such by his/her cosignature. SOTO HENDRICKS DO Mar 21, 2019 14:17
[2019-03-21] MEDS ORDERED: FENTANYL 2MCG/ML ROPIVACAINE 0.2% IN 0.9% NACL 100ML IVBAG As Ordered ONE (16:24)
[2019-03-21] MEDS ORDERED: diphenhydrAMINE INJ 50MG/ML VIAL (J1200) IV PRN (17:30)
[2019-03-21] MEDS ORDERED: ePHEDrine SULFATE 25 MG/5 ML(5MG/ML) SYRINGE IV PRN (17:30)
[2019-03-21] MEDS ORDERED: EPIDURAL COMMENT XX SCH (17:30)
[2019-03-21] MEDS ORDERED: LACTATED RINGER'S 1000 ML IV PRN (17:30)
[2019-03-21] MEDS ORDERED: REFRIGERATOR IV KEYS XX PRN (17:30)
[2019-03-21] MEDS ORDERED: NALOXONE INJ 0.4 MG/1 ML VIAL (J2310) IV PRN (17:30)
[2019-03-21] MEDS ORDERED: ONDANSETRON 4MG/2ML VIAL (J2405) IV PRN (17:30)
[2019-03-21] MEDS ORDERED: EPIDURAL/PCA KEYS XX PRN (17:30)
[2019-03-21] MEDS ORDERED: FENTANYL/ROPIVACAINE/NACL BAG 100 ML EPIDURAL SCH (17:30)
[2019-03-21 19:36] LABS: CORD GAS ABE V -3.3; CORD GAS O2 SAT V 69.2 %; CORD GAS PCO2 V 40.3 mmHg; CORD GAS PH V 7.354 UNITS; CORD GAS PO2 V 31.1 mmHg; CORD GAS SBC V 21.1 MEQ/L; CORD GAS TCO2 V 23.2 MEQ/L
[2019-03-21 19:39] LABS: CORD GAS ABE A -5.6; CORD GAS HCO3 A 24.4 MEQ/L; CORD GAS PH A 7.172 UNITS; CORD GAS PO2 A 22.8 mmHg; CORD GAS SBC A 18.7 MEQ/L; CORD GAS TCO2 A 26.4 MEQ/L
[2019-03-21] MEDS ORDERED: MEASLES,MUMPS,RUBELLA VACCINE INJ (MMR-II) (90707) SC SCH (19:45)
[2019-03-21] MEDS ORDERED: IBUPROFEN 600 MG TAB PO PRN (19:45)
[2019-03-21] MEDS ORDERED: ANUSOL HC CREAM 30GM TOP PRN (19:45)
[2019-03-21] MEDS ORDERED: ACETAMINOPHEN 500 MG TAB PO PRN (19:45)
[2019-03-21] MEDS ORDERED: METHYLERGONOVINE MALEATE 0.2 MG TAB PO PRN (19:45)
[2019-03-21] MEDS ORDERED: RHOGAM 300 MCG (1500 IU) INJ (J2790) IM SCH (19:45)
[2019-03-21] MEDS ORDERED: ACETAMINOPHEN TAB 650MG DOSE (2X325MG) PO PRN (19:45)
[2019-03-21] MEDS ORDERED: DOCUSATE SODIUM 100 MG CAP PO PRN (19:45)
[2019-03-21] MEDS ORDERED: DIBUCAINE 1% OINTMENT 30GM TOP PRN (19:45)
--- NOTE | 2019-03-21 20:06 | DN ---
DATE OF DELIVERY: 03/21/2019 PREDELIVERY DIAGNOSIS: 39 weeks 2 days gestation. POSTDELIVERY DIAGNOSIS: Delivered. PROCEDURE: Spontaneous vaginal delivery. PROVIDER: Janet Ayala DO, PGY-3 TOLL TEST WORKER: Kathya Trinh MD ANESTHESIA: Epidural. ESTIMATED BLOOD LOSS: 400 mL. FINDINGS: Male weighing 7 pounds 11 ounces or 3500 grams. scores 6 and 8. DELIVERY SUMMARY: After a short second stage, the patient spontaneously delivered a 7 pound 11 ounce male infant weighing 3500 grams under epidural anesthesia at 1911 hours. The infant delivered left occiput anterior, restituted to left occiput transverse, and there nuchal times two, tight which were reduced. The shoulders delivered with ease followed by the corpus. The cried spontaneously and was handed to the mother. scores were 6 and 8. The cord was doubly clamped and cut by the father of the baby. Cord gases were obtained. The placenta was delivered spontaneously at 1920 hours via Castelan mechanism and appeared to be intact. The patient received IV Pitocin immediately after delivery of the placenta. The patient had a small first-degree perineal laceration that was repaired with #3-0 Rapide in the usual fashion. Sponges, instrument and needle counts were correct. The parents have named their baby Saleem. GME ATTESTATION My faculty preceptor for this patient encounter was physically present during the encounter and was fully available. All aspects of the patient interview, examination, medical decision making process, and medical care plan development were reviewed and approved by the faculty preceptor. The faculty preceptor is aware and concurs with the plan as stated in the body of this note and will attest to such by his/her cosignature. RACHEL
[2019-03-21] MEDS: IBUPROFEN 800 MG TAB PO PRN (22:51)
[2019-03-22 00:20] VITALS: BP 118/56
[2019-03-22 06:04] VITALS: BP 102/66
--- NOTE | 2019-03-22 07:36 | IPNPDOC ---
Text Note Date of Service The patient was seen on 03/22/19. NOTE Postop Day 1 s/p ; uncomplicated S: pain adequately controlled, lochia and bleeding decreasing, voiding spontaneously, ambulating without assistance, tolerating regular diet. O: vitals stable Heart: RRR, no murmurs Lungs: CTA bilaterally Abd: Fundus firm @ U Ext: no edema, nontender, negative Lorraine's bilaterally A/P: 29 yo G4 now P4. day 1 s/p . Hemodynamically stable, afebrile, adequate pain control. Recovering well. -Routine care and advancement. -Anticipate discharge tomorrow VS,Fishbone, I+O VS, Fishbone, I+O Laboratory Tests 03/21/19 08:12 Red Blood Count 4.62, Mean Corpuscular Volume 79.2 L, Mean Corpuscular Hemoglobin 26.0 L, Mean Corpuscular Hemoglobin Concent 32.8, Red Cell Dis tribution Width 23.5 H Vital Signs Date Time Temp Pulse Resp B/P (MAP) Pulse Ox O2 Delivery O2 Flow Rate FiO2 03/22/19 06:04 97.7 65 14 102/66 (78) 98 I&O- Last 24 Hours up to 6 AM 03/22/19 05:59 Intake Total 2845 ml Output Total 2600 ml Balance 245 ml GME ATTESTATION GME ATTESTATION My faculty preceptor for this patient encounter was physically present during the encounter and was fully available. All aspects of the patient interview, examination, medical decision making process, and medical care plan development were reviewed and approved by the faculty preceptor. The faculty preceptor is aware and concurs with the plan as stated in the body of this note and will attest to such by his/her cosignature. SOTO HENDRICKS DO Mar 22, 2019 07:36
[2019-03-22] MEDS: PRENATAL VITAMINS CHEWABLE TABLET PO SCH (08:42)
[2019-03-22] MEDS ORDERED: ESCITALOPRAM OXALATE 10 MG TAB (LEXAPRO) PO SCH ×2 (09:00→21:00)
[2019-03-22] MEDS: IBUPROFEN 800 MG TAB PO PRN (13:37)
[2019-03-22 17:59] VITALS: BP 104/55
[2019-03-23 05:50] VITALS: BP 115/61
[2019-03-23] MEDS: PRENATAL VITAMINS CHEWABLE TABLET PO SCH (08:41)
[2019-03-24] MEDS ORDERED: ESCITALOPRAM OXALATE 10 MG TAB (LEXAPRO) PO SCH (21:00)
== END 2019-03-23 11:50 | disposition home or self-care (01) | DRG 560 ==
LOC: M LDI 07:12 → M PED 22:00 → M OBS 03-22 14:39
PROVIDERS: ADMIT Obstetrics & Gynecology; ATTEND Obstetrics & Gynecology
PROC: 10E0XZZ Delivery of Products of Conception, External Approach (ICD-10-PCS; principal; 2019-03-21)
PROC: 3E033VJ Introduction of Other Hormone into Peripheral Vein, Percutaneous Approach (ICD-10-PCS; 2019-03-21)
PROC: 10907ZC Drainage of Amniotic Fluid, Therapeutic from Products of Conception, Via Natural or Artificial Opening (ICD-10-PCS; 2019-03-21)
PROC: 0HQ9XZZ Repair Perineum Skin, External Approach (ICD-10-PCS; 2019-03-21)
DX: O99.344 Other mental disorders complicating childbirth (principal); F41.0 Panic disorder [episodic paroxysmal anxiety]; F32.9 Major depressive disorder, single episode, unspecified; O34.211 Maternal care for low transverse scar from previous cesarean delivery; O99.284 Endocrine, nutritional and metabolic diseases complicating childbirth; E03.9 Hypothyroidism, unspecified; Z3A.39 39 weeks gestation of pregnancy; O99.824 Streptococcus B carrier state complicating childbirth; O69.1XX0 Labor and delivery complicated by cord around neck, with compression, not applicable or unspecified; O70.0 First degree perineal laceration during delivery; Z37.0 Single live birth

== ENCOUNTER 2019-05-01 18:38 | Emergency (ER) | payer OTHER ==
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
[2019-05-01] MEDS ORDERED: IBUPROFEN 600 MG TAB PO ONE (19:45)
[2019-05-01] MEDS ORDERED: METOCLOPRAMIDE 10 MG TAB PO ONE (19:45)
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
[2019-05-01 21:01] VITALS: BP 130/80
--- NOTE | 2019-05-04 09:21 | ED PDOC ---
Post-Departure Follow-Up certified letter sent to pt re formal read of ct chest for fu Leonid Pereyra MD May 04, 2019 09:21
== END 2019-05-01 21:57 | disposition home or self-care (01) ==
LOC: M ED 18:38
DX: S06.0X0A Concussion without loss of consciousness, initial encounter (principal); S20.219A Contusion of unspecified front wall of thorax, initial encounter; V49.49XA Driver injured in collision with other motor vehicles in traffic accident, initial encounter; Y92.410 Unspecified street and highway as the place of occurrence of the external cause; R41.3 Other amnesia; Z79.899 Other long term (current) drug therapy; Z88.8 Allergy status to other drugs, medicaments and biological substances

== ENCOUNTER 2019-06-12 09:50 | Day surgery (SDC) | payer OTHER ==
[~2019-06-12] VITALS: Ht 162.6 cm; Wt 64.8 kg
[~2019-06-12 09:50] MED LIST changes: +D5W/0.2% SODIUM CHLORIDE 1,000 ML IV ONE; +LIDOCAINE 1% MDV 20ML VIAL SQ PRN
[2019-06-12 10:31] LABS: HEMATOCRIT 38.3 % (36.0-47.0); HEMOGLOBIN 12.4 g/dl (12.0-15.5); MEAN CORPUSCULAR HGB CONC 32.4 g/dl (32.0-36.5); MEAN CORPUSCULAR VOLUME 83.4 fl (80.0-96.0); PLATELET COUNT, AUTOMATED 234 10^3/uL (150-450); RED BLOOD COUNT 4.59 10^6/uL (4.00-5.40); WHITE BLOOD COUNT 5.8 10^3/uL (4.0-10.0)
[2019-06-12] MEDS ORDERED: BUPIVACAINE HCL 0.25% 10 ML VIAL As Ordered ONE (10:38)
[2019-06-12] MEDS ORDERED: OXYC1TAB23 PO (10:49)
[2019-06-12] MEDS ORDERED: HYDROmorphone HCL 2 MG/ML 1ML VIAL (J1170) As Ordered ONE (11:06)
[2019-06-12] MEDS ORDERED: ONDANSETRON 4MG/2ML VIAL (J2405) As Ordered ONE (11:06)
[2019-06-12] MEDS ORDERED: fentaNYL 100 MCG/2 ML INJECTION (J3010) As Ordered ONE ×2 (11:06→12:16)
[2019-06-12] MEDS ORDERED: ROCURONIUM BROMIDE 50 MG/5 ML VIAL As Ordered ONE (11:06)
[2019-06-12] MEDS ORDERED: KETOROLAC 60 MG/2 ML VIAL (J1885) As Ordered ONE (11:06)
[2019-06-12] MEDS ORDERED: SUGAMMADEX SODIUM 500 MG/5 ML VIAL (BRIDION) As Ordered ONE (11:06)
[2019-06-12] MEDS ORDERED: LIDOCAINE 2% INJ 100 MG/5 ML SDV (FOR ANES.) As Ordered ONE (11:06)
[2019-06-12] MEDS ORDERED: MIDAZOLAM INJ 2 MG/2 ML VIAL (J2250) As Ordered ONE ×2 (11:06→12:13)
[2019-06-12] MEDS ORDERED: dexameTHASONE 4 MG/ML 1ML VIAL (J1100) As Ordered ONE (11:06)
[2019-06-12] MEDS ORDERED: PROPOFOL 200 MG/20 ML VIAL As Ordered ONE (11:06)
[2019-06-12] MEDS ORDERED: GLYCOPYRROLATE INJ 0.2 MG/ML 2 ML VIAL As Ordered ONE (11:38)
[2019-06-12] MEDS: fentaNYL 100 MCG/2 ML INJECTION (J3010) IV PRN ×3 (12:26→12:55)
[2019-06-12] MEDS ORDERED: LR 1,000 ML IV SCH ×2 (12:30→12:45)
[2019-06-12] MEDS ORDERED: ONDANSETRON 4MG/2ML VIAL (J2405) IV PRN (12:30)
[2019-06-12] MEDS: PERCOCET 5MG/325MG TAB PO PRN ×2 (12:38→13:01)
[2019-06-12] MEDS ORDERED: PERCOCET 5MG/325MG TAB PO PRN (12:45)
[2019-06-12] MEDS ORDERED: MIDAZOLAM INJ 2 MG/2 ML VIAL (J2250) IV ONE (12:45)
[2019-06-12 16:25] VITALS: BP 110/64
--- NOTE | 2019-06-13 09:34 | RO ---
DATE OF PROCEDURE: 06/12/2019 PREPROCEDURE DIAGNOSES: Menorrhagia. Undesired fertility. POSTPROCEDURE DIAGNOSES: Menorrhagia. Undesired fertility. PROCEDURE: Laparoscopic bilateral salpingectomy, hysteroscopy, dilation and curettage. NovaSure endometrial ablation. SURGEON: Dr. Gama Lancaster. TRAVELING CLERK: ANESTHESIA: General endotracheal. ESTIMATED BLOOD LOSS: 20 mL. URINE OUTPUT: 100 mL FINDINGS: Normal pelvis including the uterus, fallopian tubes and ovaries. Normal upper abdomen. DESCRIPTION OF PROCEDURE: Patient brought to the operating room where general endotracheal anesthesia was induced. She was prepped and draped in a sterile fashion in the dorsal lithotomy position. The bladder was entered through the catheter. A sponge stick was placed in the vagina to use as an manipulator. Periumbilical incision made with a scalpel. A Veress needle was placed through this incision while tenting up on the skin of the abdomen. Intra-abdominal location of the Veress needle was assessed using saline bulb syringe. Pneumoperitoneum was created. The Veress needles was removed. 5 mm trocar using Visiport was inserted through this incision. 5 and 8 mm suprapubic port respectively were placed under direct visualization. The patient was placed in Trendelenburg position. The fallopian tubes were grasped with a grasping instrument. A LigaSure device was used to coagulate and incise broad ligament attachments. Both tubes were both excised near their origins. Both tubes were removed through the suprapubic port. Pneumoperitoneum was released. All instruments removed. Skin was closed with #4-0 Monocryl subcuticular sutures. Sponge, instrument and needle counts were correct. Sponge tip was removed. A speculum was placed. The anterior lip of the cervix was grasped with a tenaculum. The cervix was dilated with taper dilators. Diagnostic hysteroscope using normal saline as a distension medium was placed through the internal os. Visualization of the endometrial cavity revealed the findings noted above. Hysteroscope was removed. Sharp curettage was performed. Specimens sent for pathology. NovaSure device was assembled and found to be in working order. Cavity length was calculated at 4.5 cm. Cavity width was 4.6 cm. The device was inserted. Power setting was 114 kohler. Successful cavity assessment was performed. Coagulation was initiated. Total coagulation time was 1 minute 28 seconds. NovaSure device was removed. Hysteroscope was placed back through the internal os and excellent coagulation effect was noted throughout the endometrium with sparring of the cervix. All instruments were removed. Sponge and instrument counts were correct. The patient was extubated and went to the recovery room in stable condition. RACHEL
== END 2019-06-12 16:43 | disposition home or self-care (01) ==
LOC: M SDC 09:50
PROVIDERS: ATTEND Specialist
DX: N92.0 Excessive and frequent menstruation with regular cycle (principal); Z30.2 Encounter for sterilization; D64.9 Anemia, unspecified; F41.9 Anxiety disorder, unspecified; F32.9 Major depressive disorder, single episode, unspecified; Z79.899 Other long term (current) drug therapy; Z88.8 Allergy status to other drugs, medicaments and biological substances
CPT/HCPCS: 36415; 58563; 58661; 81025; 85027; 88302; 88305; J1100; J1170; J1885; J2250; J2405; J3010

== ENCOUNTER 2019-06-30 14:03 | Emergency (ER) | payer OTHER ==
[~2019-06-30] VITALS: Ht 162.6 cm; Wt 62.7 kg
[~2019-06-30 14:03] MED LIST changes: -D5W/0.2% SODIUM CHLORIDE 1,000 ML IV ONE; -LIDOCAINE 1% MDV 20ML VIAL SQ PRN
[2019-06-30 14:04] VITALS: BP 115/71
[2019-06-30] MEDS ORDERED: NAPR-837 PO (14:37)
[2019-06-30] MEDS ORDERED: BACT800T5 PO (14:37)
[2019-06-30] MEDS ORDERED: NAPROXEN 250 MG TAB PO ONE (14:45)
[2019-06-30] MEDS ORDERED: BACTRIM 160MG/800MG DS TAB PO ONE (14:45)
== END 2019-06-30 14:44 | disposition home or self-care (01) ==
LOC: M ED 14:03
DX: T81.49XA Infection following a procedure, other surgical site, initial encounter (principal); Y76.8 Miscellaneous obstetric and gynecological devices associated with adverse incidents, not elsewhere classified; Z79.899 Other long term (current) drug therapy

== ENCOUNTER 2019-07-12 12:53 | Emergency (ER) | payer OTHER ==
[~2019-07-12] VITALS: Ht 162.6 cm; Wt 64.5 kg
[~2019-07-12 12:53] MED LIST changes: +BACT800T5 PO; +NAPR-837 PO
[2019-07-12] MEDS ORDERED: SULF1TAB93 (13:07)
[2019-07-12 17:36] LABS: BASO # 0.1 10^3/uL (0.0-0.2); BASO % 1.1 % (0.0-1.0); EOS # 0.3 10^3/uL (0.0-0.5); EOS % 5.1 % (0.0-3.0); HEMATOCRIT 39.1 % (36.0-47.0); HEMOGLOBIN 12.6 g/dl (12.0-15.5); LYMPH # 2.9 10^3/uL (1.5-5.0); LYMPH % 44.3 % (24.0-44.0); MEAN CORPUSCULAR HGB CONC 32.2 g/dl (32.0-36.5); MEAN CORPUSCULAR VOLUME 83.9 fl (80.0-96.0); MONO # 0.5 10^3/uL (0.0-0.8); MONO % 7.5 % (0.0-5.0); NEUTROPHILS # 2.8 10^3/uL (1.5-8.5); NEUTROPHILS % 41.7 % (36.0-66.0); PLATELET COUNT, AUTOMATED 276 10^3/uL (150-450); RED BLOOD COUNT 4.66 10^6/uL (4.00-5.40); WHITE BLOOD COUNT 6.6 10^3/uL (4.0-10.0)
[2019-07-12] MEDS ORDERED: ISOVUE-370 76% 100ML VIAL (Q9967) As Ordered ONE (17:49)
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
[2019-07-12 18:47] LABS: APPEARANCE, URINE CLOUDY (CLEAR); BACTERIA, URINE AUTO NEGATIVE (NEGATIVE); BILIRUBIN, URINE AUTO NEGATIVE (NEGATIVE); BLOOD, URINE BLOOD 3+ (NEGATIVE); COLOR, URINE YELLOW (YELLOW); GLUCOSE, URINE (UA) AUTO NEGATIVE (NEGATIVE); KETONE, URINE AUTO NEGATIVE (NEGATIVE); LEUKOCYTE ESTERASE, URINE AUTO 2+ (NEGATIVE); MUCUS, URINE SMALL (NEGATIVE); NITRITE, URINE AUTO NEGATIVE (NEGATIVE); PROTEIN, URINE AUTO 2+ mg/dL (NEGATIVE); RBC, URINE AUTO 8 /HPF (0-3); SPECIFIC GRAVITY URINE AUTO 1.011 (1.002-1.035); SQUAMOUS EPITHELIAL CELL UR AU 18 /HPF (0-6); UROBILINOGEN, URINE AUTO 0.2 mg/dL (0.0-2.0); WBC, URINE AUTO TNTC /HPF (0-3)
[2019-07-12 20:07] VITALS: BP 109/69
[2019-07-12] MEDS ORDERED: MACR100C43 PO (20:39)
== END 2019-07-12 20:06 | disposition home or self-care (01) ==
LOC: M ED 12:53
DX: N30.90 Cystitis, unspecified without hematuria (principal); R10.32 Left lower quadrant pain; Z79.899 Other long term (current) drug therapy; Z88.8 Allergy status to other drugs, medicaments and biological substances
CPT/HCPCS: 74177; 80047; 81001; 85025; 99283; Q9967

== ENCOUNTER 2019-08-25 15:07 | Emergency (ER) | payer OTHER ==
[~2019-08-25] VITALS: Ht 162.6 cm; Wt 62.9 kg
[~2019-08-25 15:07] MED LIST changes: +MACR100C43 PO; +SULF1TAB93
[2019-08-25 15:46] LABS: BASO # 0.1 10^3/uL (0.0-0.2); BASO % 1.1 % (0.0-1.0); EOS # 0.2 10^3/uL (0.0-0.5); EOS % 3.4 % (0.0-3.0); HEMATOCRIT 39.3 % (36.0-47.0); HEMOGLOBIN 13.2 g/dl (12.0-15.5); LYMPH # 2.8 10^3/uL (1.5-5.0); LYMPH % 45.6 % (24.0-44.0); MEAN CORPUSCULAR HEMOGLOBIN 27.3 pg (27.0-33.0); MEAN CORPUSCULAR HGB CONC 33.6 g/dl (32.0-36.5); MEAN CORPUSCULAR VOLUME 81.4 fl (80.0-96.0); MONO # 0.4 10^3/uL (0.0-0.8); MONO % 6.4 % (0.0-5.0); NEUTROPHILS # 2.7 10^3/uL (1.5-8.5); NEUTROPHILS % 43.3 % (36.0-66.0); PLATELET COUNT, AUTOMATED 252 10^3/uL (150-450); RED BLOOD COUNT 4.83 10^6/uL (4.00-5.40); WHITE BLOOD COUNT 6.1 10^3/uL (4.0-10.0)
[2019-08-25] MEDS ORDERED: NS 1,000 ML IV ONE (16:00)
[2019-08-25] MEDS ORDERED: METOCLOPRAMIDE INJ 10MG/2ML VIAL (J2765) IV ONE (16:00)
[2019-08-25 16:20] LABS: BLOOD UREA NITROGEN 12 MG/DL (7-18); CALCIUM LEVEL 9.1 MG/DL (8.5-10.1); CARBON DIOXIDE LEVEL 26 MEQ/L (21-32); CHLORIDE LEVEL 106 MEQ/L (98-107); CREATININE FOR GFR 0.76 MG/DL (0.55-1.30); GLOMERULAR FILTRATION RATE > 60.0 (>60); GLUCOSE, FASTING 86 MG/DL (70-100); POTASSIUM SERUM 3.7 MEQ/L (3.5-5.1); SODIUM LEVEL 140 MEQ/L (136-145); THYROID STIMULATING HORMONE 0.474 uIU/ML (0.358-3.740)
--- NOTE | 2019-08-25 16:35 | REP ---
Clinical: Syncope and headache Comparison: 05/01/2019 . Findings: The ventricles, sulci, and cisterns are normal in position and appearance. Mitchell-white differentiation is maintained. No acute intracranial hemorrhage, mass/mass effect, pathology or trauma/injury. No evidence for acute infarction. No extra-axial fluid collection. Calvarium is intact. Paranasal sinuses and mastoid air cells are clear. Impression: Normal noncontrast head CT. No evidence for acute intracranial pathology or trauma/injury. Electronically Signed by Db Mendoza MD 08/25/2019 04:25 P
[2019-08-25] MEDS ORDERED: KETOROLAC 30 MG/ML VIAL (J1885) IV ONE (18:00)
[2019-08-25 18:45] VITALS: O2SAT 98
[2019-08-25] MEDS ORDERED: ONDA4TAB6 PO (18:59)
[2019-08-25 19:12] VITALS: BP 107/69
--- NOTE | 2019-08-26 08:31 | ECGEPIP ---
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
== END 2019-08-25 19:14 | disposition home or self-care (01) ==
LOC: M ED 15:07
DX: R55 Syncope and collapse (principal); B34.9 Viral infection, unspecified; R56.9 Unspecified convulsions; F41.9 Anxiety disorder, unspecified; F32.9 Major depressive disorder, single episode, unspecified; Z79.899 Other long term (current) drug therapy; Z88.8 Allergy status to other drugs, medicaments and biological substances
CPT/HCPCS: 70450; 80048; 84443; 85025; 93005; 93041; 94760; 96361; 96374; 96375; 99285; J1885; J2765

== ENCOUNTER → 2019-09-09 | Outpatient (REF) | payer OTHER ==
[~2019-09-09] MED LIST changes: +ONDA4TAB6 PO; +XANA0.5T PO
[2019-09-09 18:12] LABS: BASO % 0.8 % (0.0-1.0); EOS # 0.3 10^3/uL (0.0-0.5); EOS % 5.1 % (0.0-3.0); HEMATOCRIT 44.1 % (36.0-47.0); HEMOGLOBIN 14.5 g/dl (12.0-15.5); LYMPH # 0.9 10^3/uL (1.5-5.0); LYMPH % 17.6 % (24.0-44.0); MEAN CORPUSCULAR HEMOGLOBIN 27.7 pg (27.0-33.0); MEAN CORPUSCULAR HGB CONC 32.9 g/dl (32.0-36.5); MEAN CORPUSCULAR VOLUME 84.3 fl (80.0-96.0); MONO # 0.4 10^3/uL (0.0-0.8); MONO % 7.4 % (0.0-5.0); NEUTROPHILS # 3.5 10^3/uL (1.5-8.5); NEUTROPHILS % 68.9 % (36.0-66.0); PLATELET COUNT, AUTOMATED 223 10^3/uL (150-450); RED BLOOD COUNT 5.23 10^6/uL (4.00-5.40); WHITE BLOOD COUNT 5.1 10^3/uL (4.0-10.0)
[2019-09-09 18:20] LABS: APPEARANCE, URINE CLOUDY (CLEAR); BACTERIA, URINE AUTO 1+ (NEGATIVE); BILIRUBIN, URINE AUTO NEGATIVE (NEGATIVE); BLOOD, URINE BLOOD NEGATIVE (NEGATIVE); COLOR, URINE YELLOW (YELLOW); GLUCOSE, URINE (UA) AUTO NEGATIVE (NEGATIVE); KETONE, URINE AUTO TRACE mg/dL (NEGATIVE); LEUKOCYTE ESTERASE, URINE AUTO NEGATIVE (NEGATIVE); MUCUS, URINE LARGE (NEGATIVE); NITRITE, URINE AUTO NEGATIVE (NEGATIVE); PROTEIN, URINE AUTO 1+ mg/dL (NEGATIVE); RBC, URINE AUTO 1 /HPF (0-3); SPECIFIC GRAVITY URINE AUTO 1.028 (1.002-1.035); SQUAMOUS EPITHELIAL CELL UR AU 13 /HPF (0-6); WBC, URINE AUTO 3 /HPF (0-3)
[2019-09-09 18:28] LABS: ALBUMIN 4.5 GM/DL (3.2-5.2); ALT/SGPT 23 U/L (12-78); BILIRUBIN,TOTAL 0.8 MG/DL (0.2-1.0); BLOOD UREA NITROGEN 17 MG/DL (7-18); CALCIUM LEVEL 8.9 MG/DL (8.5-10.1); CARBON DIOXIDE LEVEL 27 MEQ/L (21-32); CHLORIDE LEVEL 106 MEQ/L (98-107); CREATININE FOR GFR 0.94 MG/DL (0.55-1.30); FERRITIN 63 NG/ML (8-252); FREE T4 0.94 NG/DL (0.76-1.46); GLOMERULAR FILTRATION RATE > 60.0 (>60); GLUCOSE, FASTING 91 MG/DL (70-100); IRON (FE) 22 UG/DL (50-170); PERCENT SATURATION 7.6 % (13.2-45.0); POTASSIUM SERUM 3.8 MEQ/L (3.5-5.1); PROLACTIN 13.6 NG/ML; SODIUM LEVEL 138 MEQ/L (136-145); THYROID STIMULATING HORMONE 0.392 uIU/ML (0.358-3.740); TOTAL IRON BINDING CAPACITY 288 UG/DL (250-450); TOTAL PROTEIN 8.1 GM/DL (6.4-8.2)
== END ==
LOC: M SFHCPLAZ 14:27
PROVIDERS: ATTEND Family Medicine
DX: E03.9 Hypothyroidism, unspecified (principal); D50.9 Iron deficiency anemia, unspecified; R55 Syncope and collapse; R63.4 Abnormal weight loss

== ENCOUNTER → 2019-09-16 | Outpatient (CLI) | payer OTHER ==
--- NOTE | 2019-09-18 07:40 | REP ---
Clinical: Abdominal pain with abnormal weight loss. Technique: Real time constantino scale and color evaluation using curved array transducer. Findings: Liver and pancreas are normal in contour, size, and echogenicity without focal hepatic or pancreatic lesion identified. The gallbladder is normal and without gallstones, wall thickening, or pericholecystic fluid. No biliary ductal dilatation is appreciated and the common bile duct measures 2.1 mm diameter. The right kidney is normal in reniform shape without hydronephrosis and measures 10.5 x 4.8 x 3.8 cm. No ascites in the visualized right upper quadrant. Impression: Normal right upper quadrant ultrasound. Electronically Signed by Db Mendoza MD 09/18/2019 07:32 A
== END ==
LOC: M RAD 08:59
PROVIDERS: ATTEND Internal Medicine Gastroenterology
DX: R63.4 Abnormal weight loss (principal)

== ENCOUNTER 2019-10-02 09:56 | Outpatient (CLI) | payer OTHER ==
[~2019-10-02] VITALS: Ht 162.6 cm; Wt 58.6 kg
[2019-10-02] VITALS (9 sets, daily range): BP systolic 99–123; BP diastolic 54–70
[2019-10-02] MEDS ORDERED: IRON SUCROSE 500 MG in NS 250 ML OVER 4 HRS IV ONE (10:15)
[2019-10-02] MEDS ORDERED: diphenhydrAMINE INJ 50MG/ML VIAL (J1200) As Ordered ONE (15:08)
[2019-10-02] MEDS ORDERED: diphenhydrAMINE INJ 50MG/ML VIAL (J1200) IV ONE (15:15)
[2019-10-02] MEDS ORDERED: ONDANSETRON 4MG/2ML VIAL (J2405) IV PRN (15:15)
[2019-10-02] MEDS ORDERED: NS 500 ML IV ONE (15:15)
[2019-10-02] MEDS ORDERED: diphenhydrAMINE INJ 50MG/ML VIAL (J1200) IV PRN (15:15)
== END 2019-10-02 17:00 | disposition home or self-care (01) ==
LOC: M INFU 09:56
PROVIDERS: ATTEND Obstetrics & Gynecology
DX: D50.8 Other iron deficiency anemias (principal); Z88.8 Allergy status to other drugs, medicaments and biological substances
CPT/HCPCS: 96365; 96366; J1200; J1756

== ENCOUNTER 2019-11-29 06:11 | Day surgery (SDC) | payer OTHER ==
[2019-11-29] VITALS (8 sets, daily range): BP systolic 95–118; BP diastolic 54–65
[~2019-11-29] VITALS: Ht 162.6 cm; Wt 58.5 kg
[~2019-11-29 06:11] MED LIST changes: +LR 1,000 ML IV ONE; +ceFAZolin SOD 2 GM in IV 1 EA IV ONE
[2019-11-29 06:51] LABS: HEMATOCRIT 38.9 % (36.0-47.0); HEMOGLOBIN 13.1 g/dl (12.0-15.5); MEAN CORPUSCULAR HEMOGLOBIN 28.4 pg (27.0-33.0); MEAN CORPUSCULAR HGB CONC 33.7 g/dl (32.0-36.5); MEAN CORPUSCULAR VOLUME 84.2 fl (80.0-96.0); PLATELET COUNT, AUTOMATED 225 10^3/uL (150-450); RED BLOOD COUNT 4.62 10^6/uL (4.00-5.40); WHITE BLOOD COUNT 5.6 10^3/uL (4.0-10.0)
[2019-11-29 07:11] LABS: BLOOD UREA NITROGEN 13 MG/DL (7-18); CARBON DIOXIDE LEVEL 29 MEQ/L (21-32); CHLORIDE LEVEL 105 MEQ/L (98-107); CREATININE FOR GFR 0.71 MG/DL (0.55-1.30); GLOMERULAR FILTRATION RATE > 60.0 (>60); GLUCOSE, FASTING 91 MG/DL (70-100); POTASSIUM SERUM 4.1 MEQ/L (3.5-5.1); SODIUM LEVEL 138 MEQ/L (136-145)
[2019-11-29] MEDS ORDERED: ROCURONIUM BROMIDE 50 MG/5 ML VIAL As Ordered ONE (07:13)
[2019-11-29] MEDS ORDERED: MIDAZOLAM INJ 2MG/2ML VIAL (J2250 PER 1MG) As Ordered ONE (07:13)
[2019-11-29] MEDS ORDERED: fentaNYL 100 MCG/2 ML INJECTION (J3010) As Ordered ONE (07:13)
[2019-11-29] MEDS ORDERED: propofoL 200 MG/20 ML VIAL As Ordered ONE (07:13)
[2019-11-29] MEDS ORDERED: LIDOCAINE 2% 100MG/5ML SDV (FOR ANES.) As Ordered ONE (07:13)
[2019-11-29] MEDS ORDERED: BUPIVACAINE HCL 0.25% 10ML VIAL As Ordered ONE (07:27)
[2019-11-29] MEDS ORDERED: dexameTHASONE 4 MG/ML 1ML VIAL (J1100 PER 1MG) As Ordered ONE ×2 (07:45→08:20)
[2019-11-29] MEDS ORDERED: ePHEDrine SULFATE 25 MG/5 ML(5MG/ML) SYRINGE As Ordered ONE (07:48)
[2019-11-29] MEDS ORDERED: ACETAMINOPHEN 1000MG 100ML IV BTL (OFIRMEV) (J0131 PER 10MG) As Ordered ONE (08:20)
[2019-11-29] MEDS ORDERED: KETOROLAC 60 MG/2 ML VIAL As Ordered ONE (08:20)
[2019-11-29] MEDS ORDERED: ONDANSETRON 4MG/2ML VIAL As Ordered ONE (08:20)
[2019-11-29] MEDS ORDERED: SUGAMMADEX SODIUM 500 MG/5 ML VIAL (BRIDION) As Ordered ONE (08:21)
[2019-11-29] MEDS ORDERED: HYDROmorphone HCL 2 MG/ML 1ML VIAL (J1170) As Ordered ONE (08:21)
[2019-11-29] MEDS ORDERED: METOCLOPRAMIDE INJ 10MG/2ML VIAL (J2765 PER 1) As Ordered ONE (08:26)
[2019-11-29] MEDS ORDERED: MORPHINE 4 MG/ML 1ML VIAL/SYRINGE (J2270) IV PRN (09:15)
[2019-11-29] MEDS ORDERED: METOCLOPRAMIDE INJ 10MG/2ML VIAL (J2765 PER 1) IV PRN (09:15)
[2019-11-29] MEDS ORDERED: fentaNYL 100 MCG/2 ML INJECTION (J3010) IV PRN (09:15)
[2019-11-29] MEDS ORDERED: ONDANSETRON 4MG/2ML VIAL IV PRN ×2 (09:15→09:30)
[2019-11-29] MEDS ORDERED: LR 1,000 ML IV SCH (09:15)
[2019-11-29] MEDS ORDERED: PERCOCET 5MG/325MG TAB PO PRN ×3 (09:15)
[2019-11-29] MEDS ORDERED: KETOROLAC 30 MG/ML 1ML VIAL IV PRN (09:30)
[2019-11-29] MEDS ORDERED: OXYC1TAB23 PO (10:40)
[2019-11-29] MEDS ORDERED: IBUP-1022 PO (10:41)
[2019-11-29] MEDS: LR 1,000 ML IV SCH ×2 (11:54→19:31)
[2019-11-29] MEDS: KETOROLAC 30 MG/ML 1ML VIAL IV PRN ×2 (15:15→21:06)
[2019-11-29] MEDS: DOCUSATE SODIUM 100 MG CAP PO SCH (20:11)
[2019-11-29] MEDS ORDERED: ESCITALOPRAM OXALATE 10 MG TAB (LEXAPRO) PO SCH (21:00)
[2019-11-30] VITALS: BP 104/58
[2019-11-30 04:15] VITALS: BP 106/66
[2019-11-30] MEDS: KETOROLAC 30 MG/ML 1ML VIAL IV PRN ×2 (05:18→12:49)
[2019-11-30 08:00] VITALS: BP 104/64
[2019-11-30] MEDS: DOCUSATE SODIUM 100 MG CAP PO SCH (09:00)
--- NOTE | 2019-12-04 14:13 | RO ---
DATE OF PROCEDURE: 11/29/2019 PREOPERATIVE DIAGNOSIS: Dysmenorrhea, pelvic pain. POSTOPERATIVE DIAGNOSIS: Dysmenorrhea, pelvic pain. PROCEDURE: Robotic-assisted laparoscopy hysterectomy. Cystoscopy. SURGEON: Dr. Gama Lancaster TEST AUTOMATION ARCHITECT: Deanna Redd NP ANESTHESIA: General endotracheal. ESTIMATED BLOOD LOSS: 150 mL. URINE OUTPUT: 100 mL. FINDINGS: Normal sized uterus. Surgically absent fallopian tubes. Normal ovaries. Normal upper abdomen including liver, stomach, gallbladder. OPERATIVE SUMMARY: The patient taken to the operating room where general endotracheal anesthesia was induced. She was prepped and draped in sterile fashion in the dorsal lithotomy position. A Mota catheter was placed. A VCare uterine manipulator was placed. A periumbilical incision made with a scalpel. Veress needle was placed through this incision while tenting up on the skin of the abdomen. An intra-abdominal location of the Veress needle was assessed with the use of a saline filled syringe. A pneumoperitoneum was created. The Veress needle was removed. An 8 mm trocar using Fitnet was inserted through this incision. Three 8 mm suprapubic ports were placed under direct visualization without difficulty. The patient was placed in Trendelenburg position. The ports were docked in the da Yoselin surgical robot. Using the fenestrated bipolar and vessel sealer, the utero-ovarian ligaments, round ligaments and broad ligaments were coagulated and incised. A bladder flap was created. The uterine vessels were skeletonized, coagulated and incised. Using multiple Endoshears, a colpotomy was created in the upper vagina at the level of the VCare cup. This was extended circumferentially around the vagina. Specimen including the uterus and cervix was removed through the vagina. The vaginal cuff was closed with #1 V-Loc suture in a running fashion. The pelvis was irrigated. Good hemostasis was noted. All instruments were removed. Cystoscopy was performed using 70 degrees cystoscope. Bilateral ureteral jets were identified. There was no evidence of injury to the bladder. The cystoscope was removed. Sponge, instrument and needle counts were correct. Deanna Redd NP, assisted throughout the procedure from beginning to end. She was critically to the successful completion of the procedure. She helped position the patient, manipulate the uterus and remove the specimen.
== END 2019-11-30 13:00 | disposition home or self-care (01) ==
LOC: M SDC 06:11 → M OBS 10:15 → M SDC 11-30 13:00
PROVIDERS: ATTEND Specialist
DX: N94.6 Dysmenorrhea, unspecified (principal); N72 Inflammatory disease of cervix uteri; E03.9 Hypothyroidism, unspecified; D64.9 Anemia, unspecified; F43.10 Post-traumatic stress disorder, unspecified; F32.9 Major depressive disorder, single episode, unspecified; F41.9 Anxiety disorder, unspecified; G47.30 Sleep apnea, unspecified; Z79.899 Other long term (current) drug therapy; Z88.8 Allergy status to other drugs, medicaments and biological substances
CPT/HCPCS: 36415; 58570; 80048; 85027; 86850; 86900; 86901; 88307; 96361; 96374; 96376; J0131; J0690; J1100; J1170; J1885; J2250; J2405; J2765; J3010

== ENCOUNTER → 2020-02-11 | Emergency (ER) | payer OTHER ==
[~2020-02-11] MED LIST changes: +IBUP-1022 PO; -LR 1,000 ML IV ONE; -ceFAZolin SOD 2 GM in IV 1 EA IV ONE
== END | disposition left against medical advice (07) ==
LOC: M ED 17:23
DX: R55 Syncope and collapse (principal); F41.9 Anxiety disorder, unspecified; D64.9 Anemia, unspecified; Z79.899 Other long term (current) drug therapy

== ENCOUNTER → 2020-02-13 | Outpatient (REF) | payer OTHER ==
[2020-03-12 13:42] LABS: HEMATOCRIT 38.1 % (36.0-47.0); HEMOGLOBIN 12.4 g/dl (12.0-15.5); MEAN CORPUSCULAR HEMOGLOBIN 27.8 pg (27.0-33.0); MEAN CORPUSCULAR HGB CONC 32.5 g/dl (32.0-36.5); MEAN CORPUSCULAR VOLUME 85.4 fl (80.0-96.0); PLATELET COUNT, AUTOMATED 211 10^3/uL (150-450); RED BLOOD COUNT 4.46 10^6/uL (4.00-5.40); WHITE BLOOD COUNT 5.9 10^3/uL (4.0-10.0)
[2020-03-29 16:42] LABS: ALBUMIN 4.2 GM/DL (3.2-5.2); ALT/SGPT 21 U/L (12-78); BILIRUBIN,TOTAL 0.4 MG/DL (0.2-1.0); BLOOD UREA NITROGEN 7 MG/DL (7-18); CALCIUM LEVEL 9.2 MG/DL (8.5-10.1); CARBON DIOXIDE LEVEL 30 MEQ/L (21-32); CHLORIDE LEVEL 105 MEQ/L (98-107); CREATININE FOR GFR 0.81 MG/DL (0.55-1.30); FERRITIN 62 NG/ML (8-252); FOLATE 17.9 NG/ML; GLOMERULAR FILTRATION RATE > 60.0 (>60); GLUCOSE, FASTING 81 MG/DL (70-100); IRON (FE) 74 UG/DL (50-170); PERCENT SATURATION 26.2 % (13.2-45.0); POTASSIUM SERUM 4.3 MEQ/L (3.5-5.1); SODIUM LEVEL 139 MEQ/L (136-145); TOTAL IRON BINDING CAPACITY 282 UG/DL (250-450); TOTAL PROTEIN 7.7 GM/DL (6.4-8.2); VITAMIN B12 LEVEL 914 PG/ML
== END ==
LOC: M SFHCPLAZ 09:54
PROVIDERS: ATTEND Hospitalist
DX: R53.83 Other fatigue (principal)

== ENCOUNTER → 2020-12-27 | Outpatient (CLI) | payer OTHER ==
[~2020-12-27] MED LIST changes: +BACTDSTA; +ESCI10TA16 PO; -ESCI10TA2 PO; -SULF1TAB93
--- NOTE | 2020-12-27 10:28 | REPVR ---
PROCEDURE INFORMATION: Exam: MR Lumbar Spine Without Contrast Exam date and time: 12/27/2020 8:58 AM Age: 30 years old Clinical indication: Lumbago with sciatica and other: Lbp with lt sided sciatica, loss of bowels; Bilateral TECHNIQUE: Imaging protocol: Multiplanar magnetic resonance images of the lumbar spine without intravenous contrast. COMPARISON: CT ABD/PEL W/IV CONTRAST ONLY 07/12/2019 5:50 PM FINDINGS: Vertebrae: There is straightening of the lumbar spine which could be secondary to positioning or muscle spasm. The lumbar vertebral bodies are normal in height,signal intensity and alignment.No acute fracture or dislocation is seen. Spinal epidural space: There is no evidence of epidural masses or hemorrhage. Spinal cord: The conus medullaris is normal. The cauda equina nerve roots demonstrate no crowding or displacement. L1-L2: There is no significant degenerative disc herniation.The spinal canal and neural foramina are patent and without significant stenosis. L2-L3: There is no significant degenerative disc herniation.The spinal canal and neural foramina are patent and without significant stenosis. L3-L4: There is no significant degenerative disc herniation.The spinal canal and neural foramina are patent and without significant stenosis. L4-L5: Moderate posterior central herniation with mild inferior migration and annular tear.There is mild spinal canal narrowing, with an AP canal dimension of 10 mm. The facet joints demonstrate mild degenerative hypertrophy and sclerosis.There is mild bilateral foraminal stenosis. L5-S1: Moderately reduced in height and T2 signal indicating degeneration. Moderate degenerative endplate changes. Moderate posterior and left foraminal herniation. There is a tiny posterior central annular tear. Mild facet arthropathy.There is mild spinal canal narrowing, with an AP canal dimension of 10 mm. There is mild right foraminal stenosis. There is moderate left lateral recess and foraminal stenosis. Soft tissues: The prevertebral soft tissues appear normal. IMPRESSION: MRI of the lumbar spine reveals multilevel degenerative spondylitic changes and degenerative disc disease as described above. Electronically signed by: Stevie Loving On 12/27/2020 10:28:30 AM
== END ==
LOC: M RAD 08:05
PROVIDERS: ATTEND Hospitalist
DX: M54.42 Lumbago with sciatica, left side (principal)